=== PATIENT | male | born 1950 | race Caucasian/White ===

== ENCOUNTER 2017-04-13 15:10 | Emergency (ER) | payer BC ==
[2017-04-13 15:34] VITALS: PULSE 77
[2017-04-13] MEDS ORDERED: TORAdol 30 mg Injection IV ONE (15:38)
[2017-04-13] MEDS ORDERED: Sodium Chloride 0.9% 1000 ML 1,000 ML IV STA (15:38)
[2017-04-13] MEDS ORDERED: BENADRYL 50 MG/ML IV ONE (15:38)
--- NOTE | 2017-04-13 15:47 | ERPHSYRPT ---
- History of Present Illness Time Seen by Provider: 04/13/17 15:38 Source: patient Exam Limitations: no limitations Patient Subjective Stated Complaint: h/a for three weeks, nausea. saw psychiatric np at clinic and was given imitrex. states pain got worse. Triage Nursing Assessment: ambulated to room per self. skin w/d, color normal, resp easy. kurtis, a/o times three. no vomiting at this time. Physician History: This is a 66-year-old white male who states that he has had some a history of neck pain in the past she arrives with complaint of a left-sided headache associated with the nausea symptoms going on for 3 weeks. He states that he has not had any fevers he has not vomited he has not been otherwise ill he apparently saw by nurse practitioner and was given a prescription for Imitrex. Past medical history: Patient has had a pinched nerve in his neck in the past past surgical history includes surgery for a pinched nerve in his neck, cholecystectomy, surgery on her right thigh secondary to MRSA Social history patient denies alcohol or illicit drug use she does admit to tobacco use Timing/Duration: week(s) (3 weeks) Quality: aching Head Pain Location: temporal (left temporal) Severity of Pain-Max: moderate Severity of Pain-Current: mild Recent Head Trauma: no recent headache/trauma Associated Symptoms: nausea/vomiting, No confusion, No dizziness, No fatigue, No facial pain, No fever/chills, No flushing, No light-headedness, No loss of consciousness, No nasal congestion, No nasal drainage, No neck pain, No numbness in legs/feet, No rash, No sweating, No scotoma, No seizures, No sinus infection, No sensitive to light, No speech problems, No stiff neck, No trouble walking, No vision changes, No visual disturbance, No weakness Previous symptoms: other (patient has had the above noted symptoms for 3 weeks) Allergies/Adverse Reactions: No Known Drug Allergies Allergy (Unverified 04/13/17 15:27) Hx Tetanus, Diphtheria Vaccination/Date Given: No Hx Influenza Vaccination/Date Given: No Hx Pneumococcal Vaccination/Date Given: No - Review of Systems Constitutional: No Fever, No Chills Eyes: Photophobia, No Discharge, No Eye Pain, No Eye Redness, No Itchy, No Tearing, No Vision Changes, No Double Vision, No Foreign Body Sensation Ears, Nose, & Throat: No Symptoms, No Ear Pain, No Ear Discharge, No Hearing Changes, No Tinnitus, No Nose Pain, No Nose Congestion, No Nose Discharge, No Sinus Drainage, No Mouth Pain, No Mouth Swelling, No Loose Teeth, No Throat Pain , No Throat Swelling, No Hoarse, No Painful Swallowing, No Snoring, No Stridor Respiratory: No Cough, No Dyspnea Cardiac: No Chest Pain, No Edema, No Syncope Abdominal/Gastrointestinal: Nausea, No Abdominal Pain, No Vomiting, No Diarrhea Genitourinary Symptoms: No Dysuria Musculoskeletal: No Back Pain, No Neck Pain Skin: No Rash Neurological: Headache, No Dizziness, No Focal Weakness, No Gait Changes, No Irritability, No Lethargy, No Paralysis, No Parasthesia, No Seizure, No Sensory Changes, No Speech Changes, No Tics, No Tremors, No Vertigo Psychological: No Symptoms, No Alcohol Abuse, No Drug Abuse, No Anxiety, No Depression, No Suicidal Ideations, No Homicidal Ideations, No Emotional Lability , No Hallucinations, No Memory Loss Endocrine: No Symptoms All Other Systems: Reviewed and Negative - Past Medical History Pertinent Past Medical History: Yes GI Medical History: Gallbladder Disease - Past Surgical History Past Surgical History: Yes Gastrointestinal: Cholecystectomy Musculoskeletal: Orthopedic Surgery - Social History Smoking Status: Current every day smoker How long have you smoked: 49 Exposure to second hand smoke: No Drug Use: none Patient Lives Alone: No - Nursing Vital Signs Nursing Vital Signs: Initial Vital Signs Temperature 97.8 F 04/13/17 15:19 Pulse Rate 77 04/13/17 15:19 Respiratory Rate 16 04/13/17 15:19 Blood Pressure 145/76 04/13/17 15:19 O2 Sat by Pulse Oximetry 97 04/13/17 15:19 Pain Scale Pain Intensity 6 - Physical Exam General Appearance: no apparent distress Eye Exam: PERRL/EOMI Ears, Nose, Throat Exam: normal ENT inspection, moist mucous membranes Neck Exam: normal inspection, supple, full range of motion, No meningismus Respiratory Exam: normal breath sounds, lungs clear Cardiovascular Exam: regular rate/rhythm, normal heart sounds Gastrointestinal/Abdominal Exam: soft, No tenderness, No distention Back Exam: normal inspection, normal range of motion Extremity Exam: normal inspection, normal range of motion Mental Status Exam: alert, oriented x 3, cooperative, No agitated, No uncooperative, No depressed affect, No disoriented to person, No disoriented to place, No disoriented to time, No intoxicated appearance, No lethargy, No unresponsive vascular specialists Exam: normal hearing, normal speech, PERRL, No abnormal eye position, No abnormal gag reflex, No abnormal pupil position, No abnormal speech, No facial asymmetry, No facial droop, No facial weakness, No gaze palsy, No hearing deficit (R), No hearing deficit (L), No tongue deviation to R, No tongue deviation to L Coordination/Gait Exam: normal gait, normal cerebellar function, No abnormal gait, No ABN nose to finger (R), No ABN nose to finger (L) Motor/Sensory Exam: no motor deficit, no sensory deficit, no pronator drift, No weak motor strength RUE, No weak motor strength LUE, No weak motor strength RLE , No weak motor strength LLE DTR Exam: ankle (R): 2+, ankle (L): 2+ Skin Exam: normal color, warm, dry, No rash SpO2 Interpretation: normal (97%) SpO2: 97 Oxygen Delivery: Room Air - Course Nursing assessment & vital signs reviewed: Yes - CT Exams Head CT Interpretation: Discussed w/radiologist (head CT: No comparisons, normal CT of the head) Ordered Tests: Active Orders 24 hr Category Date Time Status IV Insertion STAT Care 04/13/17 15:38 Active HEAD WITHOUT CONTRAST [CT] Stat Exams 04/13/17 15:39 Taken BMP Stat Lab 04/13/17 16:00 Completed CBC W DIFF Stat Lab 04/13/17 16:00 Completed SED RATE [Erythrocyte Sedimentation Rate] Stat Lab 04/13/17 16:00 Completed Medication Summary Discontinued Medications Generic Name Dose Route Start Last Admin Trade Name Freq PRN Reason Stop Dose Admin Diphenhydramine HCl 25 mg 04/13/17 15:38 Benadryl 50 Mg/Ml IV 04/13/17 15:39 STAT ONE Sodium Chloride 1,000 mls @ 999 mls/hr 04/13/17 15:38 Sodium Chloride 0.9% 1000 Ml IV 04/13/17 16:38 .Q1H1M STA Ketorolac Tromethamine 30 mg 04/13/17 15:38 Toradol 30 Mg Injection IV 04/13/17 15:39 STAT ONE Lab/Rad Data: Laboratory Result Diagrams 04/13/17 16:00 04/13/17 16:00 Laboratory Results 04/13/17 04/13/17 04/13/17 Range/Units 16:00 16:00 16:00 WBC 9.4 (4.0-10.5) K/mm3 RBC 4.86 (4.1-5.6) M/mm3 Hgb 15.7 (12.5-18.0) gm/dl Hct 44.4 (42-50) % MCV 91.4 (78-100) fl MCH 32.3 H (26-32) pg MCHC 35.4 (32-36) g/dl RDW 13.3 (11.5-14.0) % Plt Count 226 (150-450) K/mm3 MPV 10.3 H (6-9.5) fl Gran % 66.0 (36.0-66.0) % Lymphocytes % 22.6 L (24.0-44.0) % Monocytes % 6.8 (0.0-12.0) % Eosinophils % 4.0 (0.00-5.0) % Basophils % 0.6 (0.0-0.4) % Basophils # 0.06 (0-0.4) ESR 3 (0-15) mm/hr Sodium 139 (136-145) mEq/L Potassium 4.1 (3.5-5.1) mEq/L Chloride 104 (98-107) mEq/L Carbon Dioxide 28.3 (21-32) mEq/L Anion Gap 10.6 (5-15) MEQ/L BUN 15 (9-20) mg/dL Creatinine 1.42 H (0.55-1.30) mg/dl Estimated GFR 53 ML/MIN Glucose 169 H (70-110) MG/DL Calcium 8.9 (8.5-10.1) mg/dL - Progress Progress: improved Air Movement: fair Progress Note: 04/13/17 17:[address] labs sedimentation rate all normal. Apparently patient has not gotten his Benadryl Toradol. Patient really does not want IV. Will discontinue IV fluids change Benadryl and Toradol to IM. - Departure Time of Disposition: 17:29 Departure Disposition: Home Clinical Impression: Headache Qualifiers: Headache type: unspecified Headache chronicity pattern: unspecified pattern Intractability: not intractable Qualified Code(s): R51 - Headache Condition: Fair Critical Care Time: No Instructions: Headache Additional Instructions: Return home. Rest in a dark quiet room. Phenergan 25 mg orally every 4-6 hours as needed for nausea vomiting or headache. Naprosyn 500 mg orally twice a day with food as needed for pain #20 . Follow- up with your family doctor. Return for acute distress or for severe symptoms. Prescriptions: Naproxen [Naprosyn] 500 mg PO BIDWMEALS #20 tablet Promethazine HCl 25 mg [Phenergan 25 mg] 25 mg PO Q4-6HPRN PRN #12 tablet PRN Reason: nausea vomiting or headache
[2017-04-13 16:32] LABS: BASOPHIL % 0.6 % (0.0-0.4); Lymphocytes % 22.6 % (24.0-44.0); Mean Cell Volume 91.4 fl (78-100); Mean Corpuscular Hemoglobin 32.3 pg (26-32); Mean Platelet Volume 10.3 fl (6-9.5); Monocytes % 6.8 % (0.0-12.0); Platelet Count 226 K/mm3 (150-450); Red Blood Count 4.86 M/mm3 (4.1-5.6); Red Cell Distribution Width 13.3 % (11.5-14.0); White Blood Count 9.4 K/mm3 (4.0-10.5)
[2017-04-13 16:45] LABS: ANION GAP 10.6 MEQ/L (5-15); Carbon Dioxide 28.3 mEq/L (21-32); Potassium 4.1 mEq/L (3.5-5.1)
[2017-04-13] MEDS ORDERED: TORAdol 30 mg Injection IM ONE (17:25)
[2017-04-13] MEDS ORDERED: BENADRYL 50 MG/ML IM ONE (17:26)
[2017-04-13] MEDS ORDERED: BENADRYL 50 MG/ML ONE (17:27)
[2017-04-13] MEDS ORDERED: TORAdol 30 mg Injection ONE (17:27)
[2017-04-13 17:49] VITALS: BP 145/81; O2SAT 98
--- NOTE | 2017-04-14 08:06 | XRAY ---
Indication: Headache for 3 weeks. No known injury. Multiple contiguous axial images obtained through the head without contrast. Comparison: None Normal appearing brain parenchyma, ventricles, and bony calvarium. Mild mucosal thickening of both ethmoid and lesser degree maxillary sinuses. Mastoid air cells are clear. Impression: No acute intracranial abnormalities. Incidental paranasal sinus disease. CTDI 68.81
== END 2017-04-13 17:52 | disposition home or self-care (01) ==
LOC: ED 15:10
DX: R51 Headache (principal)
CPT/HCPCS: 36415; 70450; 80048; 85025; 85652; 96372; 99284; J1200; J1885

== ENCOUNTER 2023-09-22 13:07 | Observation (INO) | payer MEDICARE ==
[2023-09-22] MEDS ORDERED: Zofran 4 MG/2 ML VIAL IV ONE (13:36)
[2023-09-22] MEDS ORDERED: MORPHINE SULFATE 4 MG INJ IV ONE (13:36)
[2023-09-22] MEDS ORDERED: Sodium Chloride 0.9% 1000 ML 1,000 ML IV STA (13:36)
[2023-09-22] MEDS ORDERED: MORPHINE SULFATE 4 MG INJ ONE (13:46)
[2023-09-22] MEDS ORDERED: Sodium Chloride 0.9% 1000 ML 1,000 ML ONE ×2 (13:46→17:07)
[2023-09-22] MEDS ORDERED: Zofran 4 MG/2 ML VIAL ONE (13:46)
--- NOTE | 2023-09-22 13:48 | ERPHSYRPT ---
- History of Present Illness Time Seen by Provider: 09/22/23 13:17 Historian: patient Exam Limitations: no limitations Patient Subjective Stated Complaint: C/O Right lower abdominal pain that started on , 09/20/23. States the pain is a constant, dull ache with intermittent sharp pains. Triage Nursing Assessment: Patient ambulated back to ER; states he started at the [facility]. He is alert and oriented. No SOB. Skin tone normal. BAXTER WNL. Right side of abdomen is tender to palpation. Physician History: 73-year-old male with history of tobacco abuse, hypertension, hyperlipidemia presented in the ER with chief complaint of right-sided abdominal pain for the last 2 to 3 days, moderate to severe sharp throbbing without any associated nausea or vomiting. Questionable element of constipation. No diarrhea. P atient reports no significant aggravating or relieving factors for pain. Reports having off-and-on constipation for the last month and a half without any weight loss. No fever chills cough or difficulty breathing reported. Allergies/Adverse Reactions: No Known Drug Allergies Allergy (Verified 09/22/23 13:16) Home Medications: Aspirin EC 81 mg [Ecotrin 81 mg] 1 tab PO DAILY 09/22/23 [History] Fluticasone Propionate 2 spray INTRANASAL HS 09/22/23 [History] Loratadine 10 mg [Claritin 10 mg] 1 tab PO DAILY 09/22/23 [History] Rosuvastatin Calcium 1 tab PO DAILY 09/22/23 [History] Hx Tetanus, Diphtheria Vaccination/Date Given: No Hx Influenza Vaccination/Date Given: Yes Hx Pneumococcal Vaccination/Date Given: No Immunizations Up to Date: Yes Travel Risk - International Travel Have you traveled outside of the country in past 3 weeks: No - Coronavirus Screening Are you exhibiting any of the following symptoms?: No Close contact with a COVID-19 positive Pt in past 14-21 Days: No - Vaccine Status Have you recieved a Covid-19 vaccination: Yes [employer] Worker: Unknown - Vaccination Dates Dates if Unknown: ? - Review of Systems Constitutional: No Symptoms Eyes: No Symptoms Ears, Nose, & Throat: No Symptoms Respiratory: No Symptoms Cardiac: No Symptoms Abdominal/Gastrointestinal: Abdominal Pain, Constipation Genitourinary Symptoms: No Symptoms Musculoskeletal: No Symptoms Endocrine: No Symptoms Hematologic/Lymphatic: No Symptoms Immunological/Allergic: No Symptoms - Past Medical History Pertinent Past Medical History: Yes Cardiac History: High Cholesterol GI Medical History: Gallbladder Disease Other Medical History: kidney stones, seasonal allergies - Past Surgical History Past Surgical History: Yes Gastrointestinal: Cholecystectomy Genitourinary: Other Musculoskeletal: Orthopedic Surgery Other Surgical History: Kindey stone removal - Social History Smoking Status: Current every day smoker How long have you smoked: 30+ years Exposure to second hand smoke: No Drug Use: none Patient Lives Alone: No - Nursing Vital Signs Nursing Vital Signs: Initial Vital Signs Temperature 98.5 F 09/22/23 13:17 Pulse Rate 77 09/22/23 13:17 Respiratory Rate 20 09/22/23 13:17 Blood Pressure 171/82 09/22/23 13:17 O2 Sat by Pulse Oximetry 95 09/22/23 13:17 Pain Scale Pain Intensity 9 - Physical Exam General Appearance: no apparent distress, alert Eye Exam: PERRL/EOMI Ears, Nose, Throat Exam: normal ENT inspection Neck Exam: normal inspection, supple, full range of motion Respiratory Exam: normal breath sounds, lungs clear Cardiovascular Exam: regular rate/rhythm, normal heart sounds Gastrointestinal/Abdomen Exam: soft, normal bowel sounds, tenderness, guarding (No right upper quadrant/lower quadrants, periumbilical area) Back Exam: normal inspection Extremity Exam: normal inspection, normal range of motion Neurologic Exam: alert, oriented x 3, cooperative SpO2 Interpretation: normal SpO2: 96 O2 Delivery: Room Air Ordered Tests: Active Orders 24 hr Category Date Time Status IV Insertion STAT Care 09/22/23 13:36 Active NPO (ED) STAT Care 09/22/23 13:36 Active ABDOMEN AND PELVIS W CONTRAST [CT] Stat Exams 09/22/23 13:36 Completed CBC W DIFF Stat Lab 09/22/23 13:36 Completed CMP Stat Lab 09/22/23 Completed LIPASE Stat Lab 09/22/23 Completed Lactic Acid Stat Lab 09/22/23 13:36 Completed UA W/RFX UR CULTURE Stat Lab 09/22/23 13:39 Completed Medication Summary Discontinued Medications Generic Name Dose Route Start Last Admin Trade Name Freq PRN Reason Stop Dose Admin Hydromorphone HCl 1 mg 09/22/23 16:18 09/22/23 16:35 Hydromorphone 1 Mg/1ml Inj IV 09/22/23 16:19 1 mg STAT ONE Administration Hydromorphone HCl Confirm 09/22/23 16:32 Hydromorphone 1 Mg/1ml Inj Administered 09/22/23 16:33 Dose 1 mg .ROUTE .STK-MED ONE Sodium Chloride 1,000 mls @ 999 mls/hr 09/22/23 13:36 09/22/23 14:54 Sodium Chloride 0.9% 1000 Ml IV 09/22/23 14:36 Infused .Q1H1M STA Infusion Sodium Chloride Confirm 09/22/23 13:46 Sodium Chloride 0.9% 1000 Ml Administered 09/22/23 13:47 Dose 1,000 mls @ ud .ROUTE .STK-MED ONE Piperacillin Sod/Tazobactam 100 mls @ 200 mls/hr 09/22/23 15:56 09/22/23 16:07 Sod 3.375 gm/ Sodium Chloride IV 09/22/23 16:25 200 mls/hr STAT ONE Administration Sodium Chloride Confirm 09/22/23 16:03 Sodium Chloride 100ml Mini-Bag Plus Administered 09/22/23 16:04 Dose 100 mls @ ud IV .STK-MED ONE Morphine Sulfate 4 mg 09/22/23 13:36 09/22/23 13:53 Morphine Sulfate 4 Mg/Ml Injection IV 09/22/23 13:37 4 mg STAT ONE Administration Morphine Sulfate Confirm 09/22/23 13:46 Morphine Sulfate 4 Mg/Ml Injection Administered 09/22/23 13:47 Dose 4 mg .ROUTE .STK-MED ONE Ondansetron HCl 4 mg 09/22/23 13:36 09/22/23 13:49 Ondansetron Hcl 4 Mg/2 Ml Vial IV 09/22/23 13:37 4 mg STAT ONE Administration Ondansetron HCl Confirm 09/22/23 13:46 Ondansetron Hcl 4 Mg/2 Ml Vial Administered 09/22/23 13:47 Dose 4 mg .ROUTE .STK-MED ONE Piperacillin Sod/Tazobactam Sod Confirm 09/22/23 16:02 Piperacillin/Tazobactam Sodium 3.375 Gm Vial Administered 09/22/23 16:03 Dose 3.375 gm IV .STK-MED ONE Lab/Rad Data: Laboratory Result Diagrams 09/22/23 13:36 09/22/23 Unknown Laboratory Results 09/22/23 09/22/23 09/22/23 Range/Units Unknown 13:39 13:36 WBC (4.0-10.5) x10^3/uL RBC (4.1-5.6) x10^6/uL Hgb (12.5-18.0) g/dL Hct (42-50) % MCV (78-100) fL MCH (26-32) pg MCHC (32-36) g/dL RDW (11.5-14.0) % Plt Count (150-450) x10^3/uL MPV (7.5-11.0) fL Gran % (36.0-66.0) % Immature Gran % (Auto) (0.00-0.4) % Nucleat RBC Rel Count (0.00-0.1) % Eos # (Auto) (0-0.5) x10^3/uL Immature Gran # (Auto) (0.00-0.03) x10^3u/L Absolute Lymphs (auto) (1.0-4.6) x10^3/uL Absolute Monos (auto) (0.0-1.3) x10^3/uL Absolute Nucleated RBC (0.00-0.01) x10^3u/L Lymphocytes % (24.0-44.0) % Monocytes % (0.0-12.0) % Eosinophils % (0.00-5.0) % Basophils % (0.0-0.4) % Absolute Granulocytes (1.4-6.9) x10^3/uL Basophils # (0-0.4) x10^3/uL Sodium 134 L (137-145) mmol/L Potassium 4.3 (3.5-5.1) mmol/L Chloride 100 (98-107) mmol/L Carbon Dioxide 25 (22-30) mmol/L Anion Gap 13.3 (5-15) MEQ/L BUN 21 H (9-20) mg/dL Creatinine 1.33 H (0.66-1.25) mg/dL Estimated GFR 57.2 ML/MIN Glucose 129 H (74-106) mg/dL Lactic Acid 1.8 (0.4-2.0) Calcium 9.7 (8.4-10.2) mg/dL Total Bilirubin 1.40 H (0.2-1.3) mg/dL AST 16 L (17-59) U/L ALT 17 (0-50) U/L Alkaline Phosphatase 89 (38-126) U/L Serum Total Protein 8.5 H (6.3-8.2) g/dL Albumin 4.7 (3.5-5.0) g/dL Lipase 39 (23-300) U/L Urine Color Dark Yellow (Yellow) Urine Appearance Clear (Clear) Urine pH 5.5 (4.6-8.0) Ur Specific [place] 1.025 (1.005-1.030) Urine Protein 30 (Negative) Urine Glucose (UA) Negative (Negative) mg/dL Urine Ketones Trace A (Negative) Urine Blood Negative (Negative) Urine Nitrite Negative (Negative) Urine Bilirubin Negative (Negative) Urine Urobilinogen 1.0 A (0.2) mg/dL Ur Leukocyte Esterase Trace A (Negative) U Hyaline Cast (Auto) 0-2 (0-2) /LPF Urine Microscopic RBC 0-2 (0-5) /HPF Urine Microscopic WBC 0-2 (0-5) /HPF Ur Epithelial Cells None Seen (None Seen) /HPF Urine Bacteria None Seen (None Seen) /HPF Urine Culture Reflexed NO (NO) 09/22/23 Range/Units 13:36 WBC 16.3 H (4.0-10.5) x10^3/uL RBC 5.05 (4.1-5.6) x10^6/uL Hgb 16.1 (12.5-18.0) g/dL Hct 46.5 (42-50) % MCV 92.1 (78-100) fL MCH 31.9 (26-32) pg MCHC 34.6 (32-36) g/dL RDW 13.1 (11.5-14.0) % Plt Count 260 (150-450) x10^3/uL MPV 9.9 (7.5-11.0) fL Gran % 76.2 H (36.0-66.0) % Immature Gran % (Auto) 0.6 H (0.00-0.4) % Nucleat RBC Rel Count 0.0 (0.00-0.1) % Eos # (Auto) 0.17 (0-0.5) x10^3/uL Immature Gran # (Auto) 0.10 H (0.00-0.03) x10^3u/L Absolute Lymphs (auto) 2.08 (1.0-4.6) x10^3/uL Absolute Monos (auto) 1.42 H (0.0-1.3) x10^3/uL Absolute Nucleated RBC 0.00 (0.00-0.01) x10^3u/L Lymphocytes % 12.7 L (24.0-44.0) % Monocytes % 8.7 (0.0-12.0) % Eosinophils % 1.0 (0.00-5.0) % Basophils % 0.8 (0.0-0.4) % Absolute Granulocytes 12.44 H (1.4-6.9) x10^3/uL Basophils # 0.13 (0-0.4) x10^3/uL Sodium (137-145) mmol/L Potassium (3.5-5.1) mmol/L Chloride (98-107) mmol/L Carbon Dioxide (22-30) mmol/L Anion Gap (5-15) MEQ/L BUN (9-20) mg/dL Creatinine (0.66-1.25) mg/dL Estimated GFR ML/MIN Glucose (74-106) mg/dL Lactic Acid (0.4-2.0) Calcium (8.4-10.2) mg/dL Total Bilirubin (0.2-1.3) mg/dL AST (17-59) U/L ALT (0-50) U/L Alkaline Phosphatase (38-126) U/L Serum Total Protein (6.3-8.2) g/dL Albumin (3.5-5.0) g/dL Lipase (23-300) U/L Urine Color (Yellow) Urine Appearance (Clear) Urine pH (4.6-8.0) Ur Specific [place] (1.005-1.030) Urine Protein (Negative) Urine Glucose (UA) (Negative) mg/dL Urine Ketones (Negative) Urine Blood (Negative) Urine Nitrite (Negative) Urine Bilirubin (Negative) Urine Urobilinogen (0.2) mg/dL Ur Leukocyte Esterase (Negative) U Hyaline Cast (Auto) (0-2) /LPF Urine Microscopic RBC (0-5) /HPF Urine Microscopic WBC (0-5) /HPF Ur Epithelial Cells (None Seen) /HPF Urine Bacteria (None Seen) /HPF Urine Culture Reflexed (NO) - Progress Progress: improved, pain not gone completely, re-examined Progress Note: 09/22/23 16:28 73-year-old is evaluated in the ER for right-sided abdominal pain for the last couple of days. Patient is given symptomatic treatment for pain, on reevaluation pain is not much improved and given another dose of stronger pain medication Dilaudid. Workup showed white count of 16, chemistries mild JORGE with a creatinine of 1.3 and mildly low bicarb of 21. Total bili of 1.4. Patient has no UTI. CT abdomen pelvis with contrast showed acute appendicitis without abscess or perforation. No other acute abdominal pelvic findings. Patient is given a dose of Zosyn. Discussed with Dr. Juan Manuel Gee, reviewed history, workup, recommended admission to hospitalist service in consultation with general surgery and would possibly be taken to the OR later today. 09/22/23 16:[address] Garza hospitalist on-call, reviewed history, workup and surgery recommendations and patient is accepted for admission Discussed with .: Ronen, Other (Dr. Garza hospitalist) Will see patient in: hospital (observation) Counseled pt/family regarding: lab results, diagnosis, rad results Medical Desision Making - Independent Historian Additional History obtained from: Spouse - Discussion of managment Care discussed with:: specialist (Dr. Juan Manuel Gee general surgeon, Dr. Garza hospitalist) Reviewed:: Test results Agreed on:: Treatment plan, place in obs Will see patient: in hospital - Risk of complications The pt has a mod risk of morbidity or mortality based on: Need for major surgery in otherwise healthy patient - Departure Departure Disposition: Observation Clinical Impression: Acute appendicitis Condition: Stable Critical Care Time: No Referrals: SCOTTY MURPHY NP [Primary Care Provider] - Follow up/PCP as directed
[2023-09-22 13:57] LABS: Absolute Neutrophil Ct (ANC) 12.44 x10^3/uL (1.4-6.9); BASOPHIL % 0.8 % (0.0-0.4); Basophil (Absolute #) 0.13 x10^3/uL (0-0.4); Eosinophil (Absolute #) 0.17 x10^3/uL (0-0.5); Hematocrit 46.5 % (42-50); Hemoglobin 16.1 g/dL (12.5-18.0); IMMATURE GRAN % 0.6 % (0.00-0.4); Lymphocyte (Absolute #) 2.08 x10^3/uL (1.0-4.6); Lymphocytes % 12.7 % (24.0-44.0); Mean Cell Volume 92.1 fL (78-100); Mean Corpuscular Hemoglobin 31.9 pg (26-32); Mean Corpuscular Hgb Concent. 34.6 g/dL (32-36); Mean Platelet Volume 9.9 fL (7.5-11.0); Monocyte (Absolute #) 1.42 x10^3/uL (0.0-1.3); Monocytes % 8.7 % (0.0-12.0); Neutrophil % 76.2 % (36.0-66.0); Platelet Count 260 x10^3/uL (150-450); Red Blood Count 5.05 x10^6/uL (4.1-5.6); Red Cell Distribution Width 13.1 % (11.5-14.0); White Blood Count 16.3 x10^3/uL (4.0-10.5)
[2023-09-22 14:10] LABS: ALBUMIN 4.7 g/dL (3.5-5.0); ANION GAP 13.3 MEQ/L (5-15); BILIRUBIN,TOTAL 1.4 mg/dL (0.2-1.3); Calcium 9.7 mg/dL (8.4-10.2); Creatinine 1 1.33 mg/dL (0.66-1.25); EST GLOMERULAR FILTRATION RATE 57.2 ML/MIN; Potassium 4.3 mmol/L (3.5-5.1); Total Protein 8.5 g/dL (6.3-8.2)
[2023-09-22 14:38] LABS: Appearance Clear (Clear); Bacteria None Seen /HPF (None Seen); Bilirubin Negative (Negative); Blood Negative (Negative); Epithelial Cells None Seen /HPF (None Seen); Glucose, Urine Negative (Negative); Ketones Trace (Negative); Leukocyte Esterase Trace (Negative); Nitrite Negative (Negative); Ph 5.5 (4.6-8.0); Protein,Urine Dip 30 (Negative); RBC 0-2 /HPF (0-5); Specific Gravity 1.025 (1.005-1.030); WBC 0-2 /HPF (0-5)
[2023-09-22 14:47] LABS: Hyaline Casts 0-2 /LPF (0-2)
[2023-09-22 14:48] LABS: ADD URINE CULTURE? NO (NO)
[2023-09-22] MEDS ORDERED: PIPERACILLIN/TAZOBACTAM 3.375 GM in Sodium Chloride 100ML MINI-BAG PLUS 100 ML IV ONE (15:56)
[2023-09-22] MEDS ORDERED: PIPERACILLIN/TAZOBACTAM IV ONE (16:02)
[2023-09-22] MEDS ORDERED: Sodium Chloride 100ML MINI-BAG PLUS 100 ML IV ONE (16:03)
--- NOTE | 2023-09-22 16:03 | XRAY ---
CLINICAL HISTORY:right side pain COMPARISON:None. TECHNIQUE:A CT scan of the abdomen and pelvis was performed with IV contrast. Coronal and sagittal reconstructive images were also obtained. 100 ml of Isovue 370 contrast was given IV. FINDINGS: The liver is mildly enlarged measuring about 17.3 cm in the craniocaudal axis. No focal or diffuse parenchymal abnormality. The portal vein, intrahepatic biliary radicals, and the bile ducts are normal. The gallbladder is surgically removed with surgical clips seen in the surgical bed. The spleen, pancreas, and adrenal glands are unremarkable. The kidneys are unremarkable. They are normal in size and shape. No cysts, calculi, or hydronephrosis. Multiple diverticulae are seen in the ascending colon, the transverse colon, and the descending colon with no inflammatory changes seen. The visualized small bowel loops are unremarkable. There is no evidence of significant enlargement of the mesenteric or retroperitoneal lymph nodes. Mild diffuse aortic and iliac intimal vascular atherosclerotic calcifications are seen. Pelvis: The appendix is seen thickened measuring a caliber of about 14 mm and is surrounded with fat stranding, suggesting acute appendicitis. The urinary bladder is unremarkable. The prostate size is average. Calcific foci noted within it. Small left-sided fat-containing inguinal hernia noted. The pelvic vasculature is unremarkable. No evidence of pelvic lymphadenopathy. Mild spine spondylodegenerative changes are seen. Visualized sections of the lower chest show no focal mass or consolidation. Mild posterior pleural thickening in lung bases showing subpleural ground-glass attenuation. IMPRESSION: 1. The appendix is thickened measuring 14 mm caliber, surrounded with fat stranding, suggesting acute appendicitis. Clinical assessment is recommended. 2. Diffuse uncomplicated colonic diverticulosis. [facility] ER was called at at 03:56 PM EST, 09/22/2023 and results were verbally communicated to Dr. Chavez. Electronically Signed by: Justice Hodgson MD. (09/22/2023 15:58:32 EST)
[2023-09-22] MEDS ORDERED: Hydromorphone 1 mg/ml Injection IV ONE (16:18)
[2023-09-22] MEDS ORDERED: Hydromorphone 1 mg/ml Injection ONE (16:32)
[2023-09-22] MEDS ORDERED: Sodium Chloride 0.9% 1000 ML 1,000 ML IV SCH (16:45)
--- NOTE | 2023-09-22 17:16 | PCM.HP ---
<GUSTAVO WADE - Last Filed: 09/22/23 17:41> History of Present Illness - Chief Complaint Chief Complaint: Acute appendicitis Date: 09/22/23 History of Present Illness: is a 73 year old male with a pmhx of HTN, TIA, HLD, and tobacco use who presented to ED 09/22/23 with complaints of right-sided abdominal pain for the past three days. Patient reports that he was in his usual state of health until this past Sunday when he started to experience a cramping/stabbing pain to his RUQ radiating to his umbilicus. Pain initially was intermittent but has increased in intensity and consistency the last two days. He rates his pain 8-9/10 on a numerical pain scale. No aggravating factors or associated symptoms such as nausea, vomiting, or fever. Pain somewhat reduced with pain medications. He does endorse a poor appetite with little food and drink for the past two days and constipation. Denies fever,cough, sob, cp, LEDEZMA, dizziness, N/V/D. In ED upon presentation, patient was hypertensive, afebrile, with spo2 at 95% on RA. CT of the abdomen and pelvis consistent with acute appendicitis, no abscess or perforation noted. Lab findings remarkable for WBC at 16.3, mild hyponatremia at 134, JORGE with BUN 21, creat 1.33, Tbili at 1.40, AST at 16, and total protein at 8.5. Patient given Zosyn, Dilaudid, and 1 liter fluid bolus. General surgery consult with plans for surgical intervention this evening. - Review of Systems Constitutional: No Symptoms Eyes: No Symptoms Ears, Nose, & Throat: No Symptoms Respiratory: No Symptoms Cardiac: No Symptoms Abdominal/Gastrointestinal: Abdominal Pain, Constipation, Appetite Changes (poor appetite) Genitourinary Symptoms: No Symptoms Musculoskeletal: No Symptoms Skin: No Symptoms Neurological: No Symptoms Psychological: No Symptoms Endocrine: No Symptoms Hematologic/Lymphatic: No Symptoms Immunological/Allergic: No Symptoms Medications & Allergies Home Medications: Home Medication List Amlodipine Besylate 5 mg [Norvasc 5 mg] 5 mg PO DAILY 09/22/23 [History Confirmed 09/22/23] Aspirin EC 81 mg [Ecotrin 81 mg] 81 mg PO DAILY 09/22/23 [History Confirmed 09/22/23] Fluticasone Propionate 2 spray INTRANASAL HS 09/22/23 [History Confirmed 09/22/23] Loratadine 10 mg [Claritin 10 mg] 10 mg PO DAILY 09/22/23 [History Confirmed 09/22/23] Rosuvastatin Calcium 10 mg PO DAILY 09/22/23 [History Confirmed 09/22/23] Allergies/Adverse Reactions: Allergies Allergy/AdvReac Type Severity Reaction Status Date / Time No Known Drug Allergies Allergy Verified 09/22/23 13:16 - Past Medical History Past Medical History: Yes Cardiac History: High Cholesterol GI Medical History: Gallbladder Disease Comment: kidney stones, seasonal allergies - Past Surgical History Past Surgical History: Yes GI Surgical History: Cholecystectomy Genitourinary Surgical Hx: Other Musculskeletal Surgical Hx: Orthopedic Surgery Other Surgical History: Kindey stone removal - Social History Smoking Status: Current every day smoker How long have you smoked: 30+ years Exposure to second hand smoke: No Alcohol: None Drug Use: none - Physical Exam Vital Signs: Vital Signs - 24 hr Temp Pulse Resp BP BP Pulse Ox 09/22/23 16:42 96 09/22/23 16:37 84 12 164/73 97 09/22/23 16:32 96 09/22/23 16:00 84 18 153/76 96 09/22/23 15:30 159/74 96 09/22/23 15:00 81 156/70 94 L 09/22/23 14:52 77 162/72 98 09/22/23 14:50 98 09/22/23 14:47 95 09/22/23 14:00 148/71 09/22/23 13:30 164/88 96 09/22/23 13:17 98.5 F 77 20 171/82 95 General Appearance: no apparent distress Neurologic Exam: alert, oriented x 3, cooperative Eye Exam: PERRL/EOMI Ears, Nose, Throat Exam: normal ENT inspection Neck Exam: normal inspection Respiratory Exam: normal breath sounds, lungs clear Cardiovascular Exam: regular rate/rhythm, normal heart sounds Gastrointestinal/Abdomen Exam: soft, normal bowel sounds, tenderness (TTP RUQ) Rectal Exam: deferred Back Exam: normal inspection Extremity Exam: normal inspection Skin Exam: normal color Results - Labs Lab/Micro Results: Lab Results-Last 24 Hours 09/22/23 09/22/23 09/22/23 Range/Units 13:36 13:36 13:39 WBC 16.3 H (4.0-10.5) x10^3/uL RBC 5.05 (4.1-5.6) x10^6/uL Hgb 16.1 (12.5-18.0) g/dL Hct 46.5 (42-50) % MCV 92.1 (78-100) fL MCH 31.9 (26-32) pg MCHC 34.6 (32-36) g/dL RDW 13.1 (11.5-14.0) % Plt Count 260 (150-450) x10^3/uL MPV 9.9 (7.5-11.0) fL Gran % 76.2 H (36.0-66.0) % Immature Gran % (Auto) 0.6 H (0.00-0.4) % Nucleat RBC Rel Count 0.0 (0.00-0.1) % Eos # (Auto) 0.17 (0-0.5) x10^3/uL Immature Gran # (Auto) 0.10 H (0.00-0.03) x10^3u/L Absolute Lymphs (auto) 2.08 (1.0-4.6) x10^3/uL Absolute Monos (auto) 1.42 H (0.0-1.3) x10^3/uL Absolute Nucleated RBC 0.00 (0.00-0.01) x10^3u/L Lymphocytes % 12.7 L (24.0-44.0) % Monocytes % 8.7 (0.0-12.0) % Eosinophils % 1.0 (0.00-5.0) % Basophils % 0.8 (0.0-0.4) % Absolute Granulocytes 12.44 H (1.4-6.9) x10^3/uL Basophils # 0.13 (0-0.4) x10^3/uL Sodium (137-145) mmol/L Potassium (3.5-5.1) mmol/L Chloride (98-107) mmol/L Carbon Dioxide (22-30) mmol/L Anion Gap (5-15) MEQ/L BUN (9-20) mg/dL Creatinine (0.66-1.25) mg/dL Estimated GFR ML/MIN Glucose (74-106) mg/dL Lactic Acid 1.8 (0.4-2.0) Calcium (8.4-10.2) mg/dL Total Bilirubin (0.2-1.3) mg/dL AST (17-59) U/L ALT (0-50) U/L Alkaline Phosphatase (38-126) U/L Serum Total Protein (6.3-8.2) g/dL Albumin (3.5-5.0) g/dL Lipase (23-300) U/L Urine Color Dark Yellow (Yellow) Urine Appearance Clear (Clear) Urine pH 5.5 (4.6-8.0) Ur Specific Harts 1.025 (1.005-1.030) Urine Protein 30 (Negative) Urine Glucose (UA) Negative (Negative) mg/dL Urine Ketones Trace A (Negative) Urine Blood Negative (Negative) Urine Nitrite Negative (Negative) Urine Bilirubin Negative (Negative) Urine Urobilinogen 1.0 A (0.2) mg/dL Ur Leukocyte Esterase Trace A (Negative) U Hyaline Cast (Auto) 0-2 (0-2) /LPF Urine Microscopic RBC 0-2 (0-5) /HPF Urine Microscopic WBC 0-2 (0-5) /HPF Ur Epithelial Cells None Seen (None Seen) /HPF Urine Bacteria None Seen (None Seen) /HPF Urine Culture Reflexed NO (NO) 09/22/23 Range/Units Unknown WBC (4.0-10.5) x10^3/uL RBC (4.1-5.6) x10^6/uL Hgb (12.5-18.0) g/dL Hct (42-50) % MCV (78-100) fL MCH (26-32) pg MCHC (32-36) g/dL RDW (11.5-14.0) % Plt Count (150-450) x10^3/uL MPV (7.5-11.0) fL Gran % (36.0-66.0) % Immature Gran % (Auto) (0.00-0.4) % Nucleat RBC Rel Count (0.00-0.1) % Eos # (Auto) (0-0.5) x10^3/uL Immature Gran # (Auto) (0.00-0.03) x10^3u/L Absolute Lymphs (auto) (1.0-4.6) x10^3/uL Absolute Monos (auto) (0.0-1.3) x10^3/uL Absolute Nucleated RBC (0.00-0.01) x10^3u/L Lymphocytes % (24.0-44.0) % Monocytes % (0.0-12.0) % Eosinophils % (0.00-5.0) % Basophils % (0.0-0.4) % Absolute Granulocytes (1.4-6.9) x10^3/uL Basophils # (0-0.4) x10^3/uL Sodium 134 L (137-145) mmol/L Potassium 4.3 (3.5-5.1) mmol/L Chloride 100 (98-107) mmol/L Carbon Dioxide 25 (22-30) mmol/L Anion Gap 13.3 (5-15) MEQ/L BUN 21 H (9-20) mg/dL Creatinine 1.33 H (0.66-1.25) mg/dL Estimated GFR 57.2 ML/MIN Glucose 129 H (74-106) mg/dL Lactic Acid (0.4-2.0) Calcium 9.7 (8.4-10.2) mg/dL Total Bilirubin 1.40 H (0.2-1.3) mg/dL AST 16 L (17-59) U/L ALT 17 (0-50) U/L Alkaline Phosphatase 89 (38-126) U/L Serum Total Protein 8.5 H (6.3-8.2) g/dL Albumin 4.7 (3.5-5.0) g/dL Lipase 39 (23-300) U/L Urine Color (Yellow) Urine Appearance (Clear) Urine pH (4.6-8.0) Ur Specific Harts (1.005-1.030) Urine Protein (Negative) Urine Glucose (UA) (Negative) mg/dL Urine Ketones (Negative) Urine Blood (Negative) Urine Nitrite (Negative) Urine Bilirubin (Negative) Urine Urobilinogen (0.2) mg/dL Ur Leukocyte Esterase (Negative) U Hyaline Cast (Auto) (0-2) /LPF Urine Microscopic RBC (0-5) /HPF Urine Microscopic WBC (0-5) /HPF Ur Epithelial Cells (None Seen) /HPF Urine Bacteria (None Seen) /HPF Urine Culture Reflexed (NO) - Radiology Impressions Radiology Exams & Impressions: Radiology Procedures Category Date Time Status ABDOMEN AND PELVIS W CONTRAST [CT] Stat Exams 09/22/23 13:36 Completed - Other Procedures and Tests Respiratory Therapy 09/22/23 16:57 EKG STAT Assessment/Plan (1) Acute appendicitis Current Visit: Yes Status: Acute Assessment & Plan: -Surgery consulted, plans for surgical intervention this evening -Zosyn given in ED, surgery to decide if abx to continue -Supportive care with pain control, anti-emetics Code(s): K35.80 - UNSPECIFIED ACUTE APPENDICITIS (2) JORGE (acute kidney injury) Current Visit: Yes Status: Acute Assessment & Plan: -Most likely secondary to hypovolemia -IVF -Monitor renal/lytes daily -Avoid SACHA/ARBS NSAIDS -Strict I&O -Monitor to fluid overload Code(s): N17.9 - ACUTE KIDNEY FAILURE, UNSPECIFIED (3) Leukocytosis Current Visit: Yes Status: Acute Assessment & Plan: -secondary to acute appendicitis, WBC at 16.3, trend, Zosyn given in ED, see acute appendicitis Code(s): D72.829 - ELEVATED WHITE BLOOD CELL COUNT, UNSPECIFIED (4) HTN (hypertension) Current Visit: Yes Status: Acute Assessment & Plan: -continue home medications once appropriate Code(s): I10 - ESSENTIAL (PRIMARY) HYPERTENSION (5) HLD (hyperlipidemia) Current Visit: Yes Status: Acute Assessment & Plan: -Continue home meds when appropriate VTE: SCDs PPI: Protonix Dispo: 1-2 days Code(s): E78.5 - HYPERLIPIDEMIA, UNSPECIFIED (6) Smoker Current Visit: Yes Status: Acute Assessment & Plan: -1ppd x 50 years -Advised cessation, patient states he has chantix his PCP prescribed -Nicotine patch Code(s): F17.200 - NICOTINE DEPENDENCE, UNSPECIFIED, UNCOMPLICATED <CARROLL VALDEZ - Last Filed: 09/22/23 22:06> History of Present Illness - Chief Complaint History of Present Illness: is a 73 year old male. - Physical Exam Vital Signs: Vital Signs - 24 hr Temp Pulse Resp BP BP Pulse Ox 09/22/23 18:44 98.3 F 86 16 142/65 95 09/22/23 17:40 98.3 F 86 16 142/65 95 09/22/23 16:42 96 09/22/23 16:37 84 12 164/73 97 09/22/23 16:32 96 09/22/23 16:00 84 18 153/76 96 09/22/23 15:30 159/74 96 09/22/23 15:00 81 156/70 94 L 09/22/23 14:52 77 162/72 98 09/22/23 14:50 98 09/22/23 14:47 95 09/22/23 14:00 148/71 09/22/23 13:30 164/88 96 09/22/23 13:17 98.5 F 77 20 171/82 95 Results - Labs Lab/Micro Results: Lab Results-Last 24 Hours 09/22/23 09/22/23 09/22/23 Range/Units 13:36 13:36 13:39 WBC 16.3 H (4.0-10.5) x10^3/uL RBC 5.05 (4.1-5.6) x10^6/uL Hgb 16.1 (12.5-18.0) g/dL Hct 46.5 (42-50) % MCV 92.1 (78-100) fL MCH 31.9 (26-32) pg MCHC 34.6 (32-36) g/dL RDW 13.1 (11.5-14.0) % Plt Count 260 (150-450) x10^3/uL MPV 9.9 (7.5-11.0) fL Gran % 76.2 H (36.0-66.0) % Immature Gran % (Auto) 0.6 H (0.00-0.4) % Nucleat RBC Rel Count 0.0 (0.00-0.1) % Eos # (Auto) 0.17 (0-0.5) x10^3/uL Immature Gran # (Auto) 0.10 H (0.00-0.03) x10^3u/L Absolute Lymphs (auto) 2.08 (1.0-4.6) x10^3/uL Absolute Monos (auto) 1.42 H (0.0-1.3) x10^3/uL Absolute Nucleated RBC 0.00 (0.00-0.01) x10^3u/L Lymphocytes % 12.7 L (24.0-44.0) % Monocytes % 8.7 (0.0-12.0) % Eosinophils % 1.0 (0.00-5.0) % Basophils % 0.8 (0.0-0.4) % Absolute Granulocytes 12.44 H (1.4-6.9) x10^3/uL Basophils # 0.13 (0-0.4) x10^3/uL Sodium (137-145) mmol/L Potassium (3.5-5.1) mmol/L Chloride (98-107) mmol/L Carbon Dioxide (22-30) mmol/L Anion Gap (5-15) MEQ/L BUN (9-20) mg/dL Creatinine (0.66-1.25) mg/dL Estimated GFR ML/MIN Glucose (74-106) mg/dL Lactic Acid 1.8 (0.4-2.0) Calcium (8.4-10.2) mg/dL Total Bilirubin (0.2-1.3) mg/dL AST (17-59) U/L ALT (0-50) U/L Alkaline Phosphatase (38-126) U/L Serum Total Protein (6.3-8.2) g/dL Albumin (3.5-5.0) g/dL Lipase (23-300) U/L Urine Color Dark Yellow (Yellow) Urine Appearance Clear (Clear) Urine pH 5.5 (4.6-8.0) Ur Specific Harts 1.025 (1.005-1.030) Urine Protein 30 (Negative) Urine Glucose (UA) Negative (Negative) mg/dL Urine Ketones Trace A (Negative) Urine Blood Negative (Negative) Urine Nitrite Negative (Negative) Urine Bilirubin Negative (Negative) Urine Urobilinogen 1.0 A (0.2) mg/dL Ur Leukocyte Esterase Trace A (Negative) U Hyaline Cast (Auto) 0-2 (0-2) /LPF Urine Microscopic RBC 0-2 (0-5) /HPF Urine Microscopic WBC 0-2 (0-5) /HPF Ur Epithelial Cells None Seen (None Seen) /HPF Urine Bacteria None Seen (None Seen) /HPF Urine Culture Reflexed NO (NO) 01/13/24 Range/Units Unknown WBC (4.0-10.5) x10^3/uL RBC (4.1-5.6) x10^6/uL Hgb (12.5-18.0) g/dL Hct (42-50) % MCV (78-100) fL MCH (26-32) pg MCHC (32-36) g/dL RDW (11.5-14.0) % Plt Count (150-450) x10^3/uL MPV (7.5-11.0) fL Gran % (36.0-66.0) % Immature Gran % (Auto) (0.00-0.4) % Nucleat RBC Rel Count (0.00-0.1) % Eos # (Auto) (0-0.5) x10^3/uL Immature Gran # (Auto) (0.00-0.03) x10^3u/L Absolute Lymphs (auto) (1.0-4.6) x10^3/uL Absolute Monos (auto) (0.0-1.3) x10^3/uL Absolute Nucleated RBC (0.00-0.01) x10^3u/L Lymphocytes % (24.0-44.0) % Monocytes % (0.0-12.0) % Eosinophils % (0.00-5.0) % Basophils % (0.0-0.4) % Absolute Granulocytes (1.4-6.9) x10^3/uL Basophils # (0-0.4) x10^3/uL Sodium 134 L (137-145) mmol/L Potassium 4.3 (3.5-5.1) mmol/L Chloride 100 (98-107) mmol/L Carbon Dioxide 25 (22-30) mmol/L Anion Gap 13.3 (5-15) MEQ/L BUN 21 H (9-20) mg/dL Creatinine 1.33 H (0.66-1.25) mg/dL Estimated GFR 57.2 ML/MIN Glucose 129 H (74-106) mg/dL Lactic Acid (0.4-2.0) Calcium 9.7 (8.4-10.2) mg/dL Total Bilirubin 1.40 H (0.2-1.3) mg/dL AST 16 L (17-59) U/L ALT 17 (0-50) U/L Alkaline Phosphatase 89 (38-126) U/L Serum Total Protein 8.5 H (6.3-8.2) g/dL Albumin 4.7 (3.5-5.0) g/dL Lipase 39 (23-300) U/L Urine Color (Yellow) Urine Appearance (Clear) Urine pH (4.6-8.0) Ur Specific Harts (1.005-1.030) Urine Protein (Negative) Urine Glucose (UA) (Negative) mg/dL Urine Ketones (Negative) Urine Blood (Negative) Urine Nitrite (Negative) Urine Bilirubin (Negative) Urine Urobilinogen (0.2) mg/dL Ur Leukocyte Esterase (Negative) U Hyaline Cast (Auto) (0-2) /LPF Urine Microscopic RBC (0-5) /HPF Urine Microscopic WBC (0-5) /HPF Ur Epithelial Cells (None Seen) /HPF Urine Bacteria (None Seen) /HPF Urine Culture Reflexed (NO) - Radiology Impressions Radiology Exams & Impressions: Radiology Procedures Category Date Time Status ABDOMEN AND PELVIS W CONTRAST [CT] Stat Exams 09/22/23 13:36 Completed STACIE Encounter - STACIE Encounter Attestation STACIE Encounter Attestation: "IhavepersonallyseenandexHÉCTOR Wylie andhavediscussed pertinent aspects of their care with Gustavo Basilio agree with the history, physical exam (any modifications based on my personal exam will be noted below), assessment, and plan as outlined in original note. Please see immediately below for my summary of findings and additional assessment and plan along with any meaningful corrections/explanations to the Subjective/Objective portions of the STACIE note will be noted." My portion of the encounter took place via telemedicine. -Acute appendicitis: patient seen post operatively, reported abdominal pain. Put on clear liquid diet by surgery. Will discuss with surgery if patient needs f urther antibiotics.
[2023-09-22] MEDS ORDERED: TYLENOL 325 MG PO PRN ×2 (17:20→20:46)
[2023-09-22] MEDS ORDERED: Zofran 4 MG/2 ML VIAL IV PRN (17:20)
[2023-09-22] MEDS ORDERED: Hydromorphone 1 mg/ml Injection IV PRN (17:22)
[2023-09-22] MEDS ORDERED: NORCO 5/325 MG PO PRN (17:22)
[2023-09-22] MEDS ORDERED: Lactated Ringers 1,000 ML IV ONE (18:30)
[2023-09-22] MEDS ORDERED: Lactated Ringers 1,000 ML IV SCH (18:30)
[2023-09-22] MEDS: Nicoderm CQ 21 MG TOP SCH (18:52)
[2023-09-22] MEDS ORDERED: MEFOXIN 2 GM PREMIX** 2 GM/50 ML ML IV SCH (19:00)
[2023-09-22] MEDS ORDERED: Sensorcaine 0.25% 10 ML ONE ×2 (19:06→20:06)
[2023-09-22] MEDS ORDERED: Versed 2 MG/2 ML Injection ONE (19:23)
[2023-09-22] MEDS ORDERED: Quelicin Fliptop 200 MG/10 ML ONE (19:23)
[2023-09-22] MEDS ORDERED: SUBLIMAZE 100 MCG/2 ML ONE ×2 (19:23→20:25)
[2023-09-22] MEDS ORDERED: Amidate 20 MG/10 ML IV ONE (19:23)
[2023-09-22] MEDS ORDERED: Zemuron 100 MG/10 ML ONE (19:23)
--- NOTE | 2023-09-22 19:28 | PCM.CONS ---
History of Present Illness - Reason for Consult Chief Complaint: Acute appendicitis Requesting Provider: CARROLL VALDEZ MD Consulting Provider: SADAF HARRIS MD History of Present Illness: is a 73 year old male. hx per chart review and d/w pt 73yo male rlq abd pain started a 09/20. constant dull ache intermittently sharp. to ED workup with ct scan confirmed acute appnedicitis " - History of Present Illness Time Seen by Provider: 09/22/23 13:17 Historian: patient Exam Limitations: no limitations Patient Subjective Stated Complaint: C/O Right lower abdominal pain that started on , 09/20/23. States the pain is a constant, dull ache with intermittent sharp pains. Triage Nursing Assessment: Patient ambulated back to ER; states he started at the [facility]. He is alert and oriented. No SOB. Skin tone normal. BAXTER WNL. Right side of abdomen is tender to palpation. Physician History: 73-year-old male with history of tobacco abuse, hypertension, hyperlipidemia presented in the ER with chief complaint of right-sided abdominal pain for the last 2 to 3 days, moderate to severe sharp throbbing without any associated nausea or vomiting. Questionable element of constipation. No diarrhea. Patient reports no significant aggravating or relieving factors for pain. Reports having off-and-on constipation for the last month and a half without any weight loss. No fever chills cough or difficulty breathing reported. Allergies/Adverse Reactions: No Known Drug Allergies Allergy (Verified 09/22/23 13:16) Home Medications: Aspirin EC 81 mg [Ecotrin 81 mg] 1 tab PO DAILY 09/22/23 [History] Fluticasone Propionate 2 spray INTRANASAL HS 09/22/23 [History] Loratadine 10 mg [Claritin 10 mg] 1 tab PO DAILY 09/22/23 [History] Rosuvastatin Calcium 1 tab PO DAILY 09/22/23 [History] Hx Tetanus, Diphtheria Vaccination/Date Given: No Hx Influenza Vaccination/Date Given: Yes Hx Pneumococcal Vaccination/Date Given: No Immunizations Up to Date: Yes Travel Risk - International Travel Have you traveled outside of the country in past 3 weeks: No - Coronavirus Screening Are you exhibiting any of the following symptoms?: No Close contact with a COVID-19 positive Pt in past 14-21 Days: No - Vaccine Status Have you recieved a Covid-19 vaccination: Yes Weeder Thinner: Unknown - Vaccination Dates Dates if Unknown: ? - Review of Systems Constitutional: No Symptoms Eyes: No Symptoms Ears, Nose, & Throat: No Symptoms Respiratory: No Symptoms Cardiac: No Symptoms Abdominal/Gastrointestinal: Abdominal Pain, Constipation Genitourinary Symptoms: No Symptoms Musculoskeletal: No Symptoms Endocrine: No Symptoms Hematologic/Lymphatic: No Symptoms Immunological/Allergic: No Symptoms - Past Medical History Pertinent Past Medical History: Yes Cardiac History: High Cholesterol GI Medical History: Gallbladder Disease Other Medical History: kidney stones, seasonal allergies - Past Surgical History Past Surgical History: Yes Gastrointestinal: Cholecystectomy Genitourinary: Other Musculoskeletal: Orthopedic Surgery Other Surgical History: Kindey stone removal - Social History Smoking Status: Current every day smoker How long have you smoked: 30+ years Exposure to second hand smoke: No Drug Use: none Patient Lives Alone: No" Medications & Allergies Home Medications: Home Medication List Amlodipine Besylate 5 mg [Norvasc 5 mg] 5 mg PO DAILY 09/22/23 [History Confirmed 09/22/23] Aspirin EC 81 mg [Ecotrin 81 mg] 81 mg PO DAILY 09/22/23 [History Confirmed 09/22/23] Fluticasone Propionate 2 spray INTRANASAL HS 09/22/23 [History Confirmed 09/22/23] Loratadine 10 mg [Claritin 10 mg] 10 mg PO DAILY 09/22/23 [History Confirmed 09/22/23] Rosuvastatin Calcium 10 mg PO DAILY 09/22/23 [History Confirmed 09/22/23] Allergies/Adverse Reactions: Allergies Allergy/AdvReac Type Severity Reaction Status Date / Time No Known Drug Allergies Allergy Verified 09/22/23 13:16 - Past Medical History Past Medical History: Yes Neurological History: TIA ENT History: Other Cardiac History: High Cholesterol Respiratory History: No Pertinent History Endocrine Medical History: No Pertinent History Musculoskelatal History: No Pertinent History GI Medical History: Gallbladder Disease History: Other Pyscho-Social History: No Pertinent History Male Reproductive Disorders: No Pertinent History Comment: kidney stones, seasonal allergies - Past Surgical History Past Surgical History: Yes Neuro Surgical History: No Pertinent History Cardiac History: No Pertinent History Respiratory Surgery: No Pertinent History GI Surgical History: Cholecystectomy Genitourinary Surgical Hx: Other Musculskeletal Surgical Hx: Orthopedic Surgery Male Surgical History: No Pertinent History Other Surgical History: Kindey stone removal - Social History Smoking Status: Current every day smoker How long have you smoked: 30+ years Exposure to second hand smoke: No Alcohol: None Drug Use: none - Physical Exam Vital Signs: Vital Signs - 24 hr Temp Pulse Resp BP BP Pulse Ox 09/22/23 18:44 98.3 F 86 16 142/65 95 09/22/23 17:40 98.3 F 86 16 142/65 95 09/22/23 16:42 96 09/22/23 16:37 84 12 164/73 97 09/22/23 16:32 96 09/22/23 16:00 84 18 153/76 96 09/22/23 15:30 159/74 96 09/22/23 15:00 81 156/70 94 L 09/22/23 14:52 77 162/72 98 09/22/23 14:50 98 09/22/23 14:47 95 09/22/23 14:00 148/71 09/22/23 13:30 164/88 96 09/22/23 13:17 98.5 F 77 20 171/82 95 Additional Findings: 09/22/23 19:26 nad nonlabored resps rrr nd, soft, ttp rlq localized guarding mild edema Results - Labs Lab/Micro Results: Lab Results-Last 24 Hours 09/22/23 09/22/23 09/22/23 Range/Units 13:36 13:36 13:39 WBC 16.3 H (4.0-10.5) x10^3/uL RBC 5.05 (4.1-5.6) x10^6/uL Hgb 16.1 (12.5-18.0) g/dL Hct 46.5 (42-50) % MCV 92.1 (78-100) fL MCH 31.9 (26-32) pg MCHC 34.6 (32-36) g/dL RDW 13.1 (11.5-14.0) % Plt Count 260 (150-450) x10^3/uL MPV 9.9 (7.5-11.0) fL Gran % 76.2 H (36.0-66.0) % Immature Gran % (Auto) 0.6 H (0.00-0.4) % Nucleat RBC Rel Count 0.0 (0.00-0.1) % Eos # (Auto) 0.17 (0-0.5) x10^3/uL Immature Gran # (Auto) 0.10 H (0.00-0.03) x10^3u/L Absolute Lymphs (auto) 2.08 (1.0-4.6) x10^3/uL Absolute Monos (auto) 1.42 H (0.0-1.3) x10^3/uL Absolute Nucleated RBC 0.00 (0.00-0.01) x10^3u/L Lymphocytes % 12.7 L (24.0-44.0) % Monocytes % 8.7 (0.0-12.0) % Eosinophils % 1.0 (0.00-5.0) % Basophils % 0.8 (0.0-0.4) % Absolute Granulocytes 12.44 H (1.4-6.9) x10^3/uL Basophils # 0.13 (0-0.4) x10^3/uL Sodium (137-145) mmol/L Potassium (3.5-5.1) mmol/L Chloride (98-107) mmol/L Carbon Dioxide (22-30) mmol/L Anion Gap (5-15) MEQ/L BUN (9-20) mg/dL Creatinine (0.66-1.25) mg/dL Estimated GFR ML/MIN Glucose (74-106) mg/dL Lactic Acid 1.8 (0.4-2.0) Calcium (8.4-10.2) mg/dL Total Bilirubin (0.2-1.3) mg/dL AST (17-59) U/L ALT (0-50) U/L Alkaline Phosphatase (38-126) U/L Serum Total Protein (6.3-8.2) g/dL Albumin (3.5-5.0) g/dL Lipase (23-300) U/L Urine Color Dark Yellow (Yellow) Urine Appearance Clear (Clear) Urine pH 5.5 (4.6-8.0) Ur Specific [place] 1.025 (1.005-1.030) Urine Protein 30 (Negative) Urine Glucose (UA) Negative (Negative) mg/dL Urine Ketones Trace A (Negative) Urine Blood Negative (Negative) Urine Nitrite Negative (Negative) Urine Bilirubin Negative (Negative) Urine Urobilinogen 1.0 A (0.2) mg/dL Ur Leukocyte Esterase Trace A (Negative) U Hyaline Cast (Auto) 0-2 (0-2) /LPF Urine Microscopic RBC 0-2 (0-5) /HPF Urine Microscopic WBC 0-2 (0-5) /HPF Ur Epithelial Cells None Seen (None Seen) /HPF Urine Bacteria None Seen (None Seen) /HPF Urine Culture Reflexed NO (NO) 09/22/23 Range/Units Unknown WBC (4.0-10.5) x10^3/uL RBC (4.1-5.6) x10^6/uL Hgb (12.5-18.0) g/dL Hct (42-50) % MCV (78-100) fL MCH (26-32) pg MCHC (32-36) g/dL RDW (11.5-14.0) % Plt Count (150-450) x10^3/uL MPV (7.5-11.0) fL Gran % (36.0-66.0) % Immature Gran % (Auto) (0.00-0.4) % Nucleat RBC Rel Count (0.00-0.1) % Eos # (Auto) (0-0.5) x10^3/uL Immature Gran # (Auto) (0.00-0.03) x10^3u/L Absolute Lymphs (auto) (1.0-4.6) x10^3/uL Absolute Monos (auto) (0.0-1.3) x10^3/uL Absolute Nucleated RBC (0.00-0.01) x10^3u/L Lymphocytes % (24.0-44.0) % Monocytes % (0.0-12.0) % Eosinophils % (0.00-5.0) % Basophils % (0.0-0.4) % Absolute Granulocytes (1.4-6.9) x10^3/uL Basophils # (0-0.4) x10^3/uL Sodium 134 L (137-145) mmol/L Potassium 4.3 (3.5-5.1) mmol/L Chloride 100 (98-107) mmol/L Carbon Dioxide 25 (22-30) mmol/L Anion Gap 13.3 (5-15) MEQ/L BUN 21 H (9-20) mg/dL Creatinine 1.33 H (0.66-1.25) mg/dL Estimated GFR 57.2 ML/MIN Glucose 129 H (74-106) mg/dL Lactic Acid (0.4-2.0) Calcium 9.7 (8.4-10.2) mg/dL Total Bilirubin 1.40 H (0.2-1.3) mg/dL AST 16 L (17-59) U/L ALT 17 (0-50) U/L Alkaline Phosphatase 89 (38-126) U/L Serum Total Protein 8.5 H (6.3-8.2) g/dL Albumin 4.7 (3.5-5.0) g/dL Lipase 39 (23-300) U/L Urine Color (Yellow) Urine Appearance (Clear) Urine pH (4.6-8.0) Ur Specific [place] (1.005-1.030) Urine Protein (Negative) Urine Glucose (UA) (Negative) mg/dL Urine Ketones (Negative) Urine Blood (Negative) Urine Nitrite (Negative) Urine Bilirubin (Negative) Urine Urobilinogen (0.2) mg/dL Ur Leukocyte Esterase (Negative) U Hyaline Cast (Auto) (0-2) /LPF Urine Microscopic RBC (0-5) /HPF Urine Microscopic WBC (0-5) /HPF Ur Epithelial Cells (None Seen) /HPF Urine Bacteria (None Seen) /HPF Urine Culture Reflexed (NO) - Radiology Impressions Radiology Exams & Impressions: Radiology Procedures Category Date Time Status ABDOMEN AND PELVIS W CONTRAST [CT] Stat Exams 09/22/23 13:36 Completed Assessment/Plan (1) Acute appendicitis Current Visit: Yes Status: Acute Assessment & Plan: [address] confrimed acute appendictis. -lap appy possible open gen. Code(s): K35.80 - UNSPECIFIED ACUTE APPENDICITIS
[2023-09-22] MEDS ORDERED: ALBUTEROL/Proair Hfa MDI IH ONE (19:50)
[2023-09-22] MEDS ORDERED: PHENYLEPHRINE HCL ONE (19:58)
[2023-09-22] MEDS ORDERED: BRIDION 200MG/2ML IV ONE (20:17)
[2023-09-22] MEDS: Zofran 4 MG/2 ML VIAL IV PRN (21:35)
[2023-09-22] MEDS: MORPHINE SULFATE 4 MG INJ IV PRN ×2 (21:35→23:59)
[2023-09-22] MEDS: D5W/0.45NS W/ 20mEq KCl 1000 ML 1,000 ML IV SCH (21:53)
[2023-09-22] MEDS: Flonase NASAL NS SCH (23:57)
[2023-09-23] MEDS: MORPHINE SULFATE 4 MG INJ IV PRN ×2 (04:12→08:04)
[2023-09-23 05:51] LABS: Eosinophil % 4.3 % (0.00-5.0); Eosinophil (Absolute #) 0.44 x10^3/uL (0-0.5); Hematocrit 38.4 % (42-50); Hemoglobin 12.9 g/dL (12.5-18.0); IMMATURE GRAN # 0.02 x10^3u/L (0.00-0.03); IMMATURE GRAN % 0.2 % (0.00-0.4); Lymphocyte (Absolute #) 1.92 x10^3/uL (1.0-4.6); Lymphocytes % 18.6 % (24.0-44.0); Mean Cell Volume 94.1 fL (78-100); Mean Corpuscular Hemoglobin 31.6 pg (26-32); Mean Corpuscular Hgb Concent. 33.6 g/dL (32-36); Mean Platelet Volume 9.3 fL (7.5-11.0); Monocyte (Absolute #) 1.05 x10^3/uL (0.0-1.3); Monocytes % 10.2 % (0.0-12.0); Neutrophil % 65.7 % (36.0-66.0); Platelet Count 210 x10^3/uL (150-450); Red Blood Count 4.08 x10^6/uL (4.1-5.6); White Blood Count 10.3 x10^3/uL (4.0-10.5)
[2023-09-23 06:10] LABS: ALBUMIN 3.5 g/dL (3.5-5.0); ANION GAP 6.4 MEQ/L (5-15); BILIRUBIN,TOTAL 0.7 mg/dL (0.2-1.3); Calcium 8.4 mg/dL (8.4-10.2); Creatinine 1 1.24 mg/dL (0.66-1.25); EST GLOMERULAR FILTRATION RATE 62.2 ML/MIN; Potassium 4.1 mmol/L (3.5-5.1); Total Protein 6.5 g/dL (6.3-8.2)
[2023-09-23] MEDS ORDERED: NON-FORMULARY ITEM (Rosuvastatin Calcium [Rosuvastatin Calcium] 10 MG Tablet) PO SCH (10:00)
[2023-09-23] MEDS: CLARITIN 10 MG PO SCH (10:38)
[2023-09-23] MEDS: ECOTRIN 81 MG PO SCH (10:38)
[2023-09-23] MEDS: ENOXAPARIN SODIUM SQ SCH (10:39)
[2023-09-23] MEDS: NORVASC 5 MG PO SCH (10:39)
[2023-09-23] MEDS: NORCO 5/325 MG PO PRN ×3 (11:35→21:12)
--- NOTE | 2023-09-23 13:07 | PCM.NOTE ---
Date and Time: 09/23/23 1301 Subjective Assessment: is a 73 year old male with a pmhx of HTN, TIA, HLD, and tobacco use who presented to ED 09/22/23 with complaints of right-sided abdominal pain for the past three days. Patient reports that he was in his usual state of health until this past Sunday when he started to experience a cramping/stabbing pain to his RUQ radiating to his umbilicus. Pain initially was intermittent but has increased in intensity and consistency the last two days. He rates his pain 8- 9/10 on a numerical pain scale. No aggravating factors or associated symptoms such as nausea, vomiting, or fever. Pain somewhat reduced with pain medications. He does endorse a poor appetite with little food and drink for the past two days and constipation. Denies fever,cough, sob, cp, LEDEZMA, dizziness, N/V/D. In ED upon presentation, patient was hypertensive, afebrile, with spo2 at 95% on RA. CT of the abdomen and pelvis consistent with acute appendicitis, no abscess or perforation noted. Lab findings remarkable for WBC at 16.3, mild hyponatremia at 134, JORGE with BUN 21, creat 1.33, Tbili at 1.40, AST at 16, and total protein at 8.5. Patient given Zosyn, Dilaudid, and 1 liter fluid bolus. General surgery consulted. Lap appy performed with no complications. 09/23: Met with patient bedside. Endorses 9/10 left abdominal pain at incision site. Three puncture sites with gauze/tegederm CDI. No erythema/streaking. Discussed labwork, no signs of infection. Unable to tolerate a diet this morning. Pain medications ordered. Plan for pain control today. Advised ambulation. Surgery to evaluate on rounds. Most likely will discharge tomorrow when pain is controlled. Denies fever,cough, sob, cp, LEDEZMA, dizziness, N/V/D. <GUSTAVO WADE - Last Filed: 09/23/23 13:01> Date and Time: 09/23/232023 <CARROLL VALDEZ - Last Filed: 09/23/23 20:25> - Review of Systems Constitutional: No Symptoms Eyes: No Symptoms Ears, Nose, & Throat: No Symptoms Respiratory: No Symptoms Cardiac: No Symptoms Abdominal/Gastrointestinal: Abdominal Pain, Appetite Changes (poor appetite) Genitourinary Symptoms: No Symptoms Musculoskeletal: No Symptoms Skin: Other (3 puncture sites CDI) Neurological: No Symptoms Psychological: No Symptoms Endocrine: No Symptoms Hematologic/Lymphatic: No Symptoms <GUSTAVO WADE - Last Filed: 09/23/23 13:01> Objective Exam General Appearance: no apparent distress Neurologic Exam: alert, oriented x 3, cooperative Skin Exam: normal color Eye Exam: PERRL Ears, Nose, Throat Exam: normal ENT inspection Neck Exam: normal inspection Respiratory Exam: normal breath sounds, lungs clear Cardiovascular Exam: regular rate/rhythm, normal heart sounds Gastrointestinal/Abdomen Exam: soft, normal bowel sounds, other (3 puncture sites CDI) Extremity Exam: normal inspection Back Exam: normal inspection Male Genitalia Exam: deferred Rectal Exam: deferred <GUSTAVO WADE - Last Filed: 09/23/23 13:01> OBJECTIVE DATA Vital Signs: Vital Signs - 24 hr Temp Pulse Resp BP BP Pulse Ox 09/23/23 08:00 97.8 F 78 18 127/62 95 09/23/23 04:00 98.4 F 80 16 108/63 99 09/23/23 00:00 98.4 F 81 20 121/63 99 09/22/23 23:00 99.1 F 73 16 97/55 97 09/22/23 22:30 99 F 74 16 103/57 97 09/22/23 22:00 83 20 109/56 96 09/22/23 21:45 99.0 F 82 18 110/53 96 09/22/23 21:30 86 18 103/61 94 L 09/22/23 21:15 99.3 F 88 18 117/57 88 L 09/22/23 18:44 98.3 F 86 16 142/65 95 09/22/23 17:40 98.3 F 86 16 142/65 95 09/22/23 16:42 96 09/22/23 16:37 84 12 164/73 97 09/22/23 16:32 96 09/22/23 16:00 84 18 153/76 96 09/22/23 15:30 159/74 96 09/22/23 15:00 81 156/70 94 L 09/22/23 14:52 77 162/72 98 09/22/23 14:50 98 09/22/23 14:47 95 09/22/23 14:00 148/71 09/22/23 13:30 164/88 96 09/22/23 13:17 98.5 F 77 20 171/82 95 Pain Assessment - Last Documented Pain Intensity 1 Pain Scale Used 0-10 Pain Scale Intake and Output: Intake & Output 09/21/23 09/22/23 09/23/23 09/24/23 11:59 11:59 11:59 11:59 Intake Total 901 Output Total 500 Balance 401 Weight 78.6 kg Lab Results: Lab Results-Last 24 Hours 09/22/23 09/22/23 09/22/23 Range/Units 13:36 13:36 13:39 WBC 16.3 H (4.0-10.5) x10^3/uL RBC 5.05 (4.1-5.6) x10^6/uL Hgb 16.1 (12.5-18.0) g/dL Hct 46.5 (42-50) % MCV 92.1 (78-100) fL MCH 31.9 (26-32) pg MCHC 34.6 (32-36) g/dL RDW 13.1 (11.5-14.0) % Plt Count 260 (150-450) x10^3/uL MPV 9.9 (7.5-11.0) fL Gran % 76.2 H (36.0-66.0) % Immature Gran % (Auto) 0.6 H (0.00-0.4) % Nucleat RBC Rel Count 0.0 (0.00-0.1) % Eos # (Auto) 0.17 (0-0.5) x10^3/uL Immature Gran # (Auto) 0.10 H (0.00-0.03) x10^3u/L Absolute Lymphs (auto) 2.08 (1.0-4.6) x10^3/uL Absolute Monos (auto) 1.42 H (0.0-1.3) x10^3/uL Absolute Nucleated RBC 0.00 (0.00-0.01) x10^3u/L Lymphocytes % 12.7 L (24.0-44.0) % Monocytes % 8.7 (0.0-12.0) % Eosinophils % 1.0 (0.00-5.0) % Basophils % 0.8 (0.0-0.4) % Absolute Granulocytes 12.44 H (1.4-6.9) x10^3/uL Basophils # 0.13 (0-0.4) x10^3/uL Sodium (137-145) mmol/L Potassium (3.5-5.1) mmol/L Chloride (98-107) mmol/L Carbon Dioxide (22-30) mmol/L Anion Gap (5-15) MEQ/L BUN (9-20) mg/dL Creatinine (0.66-1.25) mg/dL Estimated GFR ML/MIN Glucose (74-106) mg/dL Lactic Acid 1.8 (0.4-2.0) Calcium (8.4-10.2) mg/dL Total Bilirubin (0.2-1.3) mg/dL AST (17-59) U/L ALT (0-50) U/L Alkaline Phosphatase (38-126) U/L Serum Total Protein (6.3-8.2) g/dL Albumin (3.5-5.0) g/dL Lipase (23-300) U/L Urine Color Dark Yellow (Yellow) Urine Appearance Clear (Clear) Urine pH 5.5 (4.6-8.0) Ur Specific [place] 1.025 (1.005-1.030) Urine Protein 30 (Negative) Urine Glucose (UA) Negative (Negative) mg/dL Urine Ketones Trace A (Negative) Urine Blood Negative (Negative) Urine Nitrite Negative (Negative) Urine Bilirubin Negative (Negative) Urine Urobilinogen 1.0 A (0.2) mg/dL Ur Leukocyte Esterase Trace A (Negative) U Hyaline Cast (Auto) 0-2 (0-2) /LPF Urine Microscopic RBC 0-2 (0-5) /HPF Urine Microscopic WBC 0-2 (0-5) /HPF Ur Epithelial Cells None Seen (None Seen) /HPF Urine Bacteria None Seen (None Seen) /HPF Urine Culture Reflexed NO (NO) 09/22/23 09/23/23 09/23/23 Range/Units Unknown 05:50 05:50 WBC 10.3 (4.0-10.5) x10^3/uL RBC 4.08 L (4.1-5.6) x10^6/uL Hgb 12.9 (12.5-18.0) g/dL Hct 38.4 L (42-50) % MCV 94.1 (78-100) fL MCH 31.6 (26-32) pg MCHC 33.6 (32-36) g/dL RDW 13.0 (11.5-14.0) % Plt Count 210 (150-450) x10^3/uL MPV 9.3 (7.5-11.0) fL Gran % 65.7 (36.0-66.0) % Immature Gran % (Auto) 0.2 (0.00-0.4) % Nucleat RBC Rel Count 0.0 (0.00-0.1) % Eos # (Auto) 0.44 (0-0.5) x10^3/uL Immature Gran # (Auto) 0.02 (0.00-0.03) x10^3u/L Absolute Lymphs (auto) 1.92 (1.0-4.6) x10^3/uL Absolute Monos (auto) 1.05 (0.0-1.3) x10^3/uL Absolute Nucleated RBC 0.00 (0.00-0.01) x10^3u/L Lymphocytes % 18.6 L (24.0-44.0) % Monocytes % 10.2 (0.0-12.0) % Eosinophils % 4.3 (0.00-5.0) % Basophils % 1.0 (0.0-0.4) % Absolute Granulocytes 6.80 (1.4-6.9) x10^3/uL Basophils # 0.10 (0-0.4) x10^3/uL Sodium 134 L 135 L (137-145) mmol/L Potassium 4.3 4.1 (3.5-5.1) mmol/L Chloride 100 105 (98-107) mmol/L Carbon Dioxide 25 28 (22-30) mmol/L Anion Gap 13.3 6.4 (5-15) MEQ/L BUN 21 H 16 (9-20) mg/dL Creatinine 1.33 H 1.24 (0.66-1.25) mg/dL Estimated GFR 57.2 62.2 ML/MIN Glucose 129 H 119 H (74-106) mg/dL Lactic Acid (0.4-2.0) Calcium 9.7 8.4 (8.4-10.2) mg/dL Total Bilirubin 1.40 H 0.70 (0.2-1.3) mg/dL AST 16 L 19 (17-59) U/L ALT 17 14 (0-50) U/L Alkaline Phosphatase 89 62 (38-126) U/L Serum Total Protein 8.5 H 6.5 (6.3-8.2) g/dL Albumin 4.7 3.5 (3.5-5.0) g/dL Lipase 39 (23-300) U/L Urine Color (Yellow) Urine Appearance (Clear) Urine pH (4.6-8.0) Ur Specific [place] (1.005-1.030) Urine Protein (Negative) Urine Glucose (UA) (Negative) mg/dL Urine Ketones (Negative) Urine Blood (Negative) Urine Nitrite (Negative) Urine Bilirubin (Negative) Urine Urobilinogen (0.2) mg/dL Ur Leukocyte Esterase (Negative) U Hyaline Cast (Auto) (0-2) /LPF Urine Microscopic RBC (0-5) /HPF Urine Microscopic WBC (0-5) /HPF Ur Epithelial Cells (None Seen) /HPF Urine Bacteria (None Seen) /HPF Urine Culture Reflexed (NO) Radiology Exams: Radiology Procedures Category Date Time Status ABDOMEN AND PELVIS W CONTRAST [CT] Stat Exams 09/22/23 13:36 Completed <GUSTAVO WADE - Last Filed: 09/23/23 13:01> Vital Signs: Vital Signs - 24 hr Temp Pulse Resp BP Pulse Ox 09/23/23 20:00 98.4 F 68 20 125/58 96 09/23/23 16:00 97.5 F 77 17 103/58 97 09/23/23 12:00 97.8 F 74 18 128/58 94 L 09/23/23 08:00 97.8 F 78 18 127/62 95 09/23/23 04:00 98.4 F 80 16 108/63 99 09/23/23 00:00 98.4 F 81 20 121/63 99 09/22/23 23:00 99.1 F 73 16 97/55 97 09/22/23 22:30 99 F 74 16 103/57 97 01/13/24 22:00 83 20 109/56 96 09/22/23 21:45 99.0 F 82 18 110/53 96 09/22/23 21:30 86 18 103/61 94 L 09/22/23 21:15 99.3 F 88 18 117/57 88 L Pain Assessment - Last Documented Pain Intensity 5 Pain Scale Used 0-10 Pain Scale Intake and Output: Intake & Output 09/21/23 09/22/23 09/23/23 09/24/23 11:59 11:59 11:59 11:59 Intake Total 901 522 Output Total 500 Balance 401 522 Weight 78.6 kg Lab Results: Lab Results-Last 24 Hours 09/23/23 09/23/23 Range/Units 05:50 05:50 WBC 10.3 (4.0-10.5) x10^3/uL RBC 4.08 L (4.1-5.6) x10^6/uL Hgb 12.9 (12.5-18.0) g/dL Hct 38.4 L (42-50) % MCV 94.1 (78-100) fL MCH 31.6 (26-32) pg MCHC 33.6 (32-36) g/dL RDW 13.0 (11.5-14.0) % Plt Count 210 (150-450) x10^3/uL MPV 9.3 (7.5-11.0) fL Gran % 65.7 (36.0-66.0) % Immature Gran % (Auto) 0.2 (0.00-0.4) % Nucleat RBC Rel Count 0.0 (0.00-0.1) % Eos # (Auto) 0.44 (0-0.5) x10^3/uL Immature Gran # (Auto) 0.02 (0.00-0.03) x10^3u/L Absolute Lymphs (auto) 1.92 (1.0-4.6) x10^3/uL Absolute Monos (auto) 1.05 (0.0-1.3) x10^3/uL Absolute Nucleated RBC 0.00 (0.00-0.01) x10^3u/L Lymphocytes % 18.6 L (24.0-44.0) % Monocytes % 10.2 (0.0-12.0) % Eosinophils % 4.3 (0.00-5.0) % Basophils % 1.0 (0.0-0.4) % Absolute Granulocytes 6.80 (1.4-6.9) x10^3/uL Basophils # 0.10 (0-0.4) x10^3/uL Sodium 135 L (137-145) mmol/L Potassium 4.1 (3.5-5.1) mmol/L Chloride 105 (98-107) mmol/L Carbon Dioxide 28 (22-30) mmol/L Anion Gap 6.4 (5-15) MEQ/L BUN 16 (9-20) mg/dL Creatinine 1.24 (0.66-1.25) mg/dL Estimated GFR 62.2 ML/MIN Glucose 119 H (74-106) mg/dL Calcium 8.4 (8.4-10.2) mg/dL Total Bilirubin 0.70 (0.2-1.3) mg/dL AST 19 (17-59) U/L ALT 14 (0-50) U/L Alkaline Phosphatase 62 (38-126) U/L Serum Total Protein 6.5 (6.3-8.2) g/dL Albumin 3.5 (3.5-5.0) g/dL Radiology Exams: Radiology Procedures Category Date Time Status ABDOMEN AND PELVIS W CONTRAST [CT] Stat Exams 09/22/23 13:36 Completed KUB Urgent Exams 09/23/23 14:48 Completed <CARROLL VALDEZ - Last Filed: 09/23/23 20:25> Assessment/Plan (1) Acute appendicitis Current Visit: Yes Status: Acute Assessment & Plan: -Surgery consulted, plans for surgical intervention this evening -Zosyn given in ED, surgery to decide if abx to continue -Supportive care with pain control, anti-emetics 09/23: PODS#1 -Pain control/anti-emetics -Most likely will d/c in the morning Code(s): K35.80 - UNSPECIFIED ACUTE APPENDICITIS (2) JORGE (acute kidney injury) Current Visit: Yes Status: Acute Assessment & Plan: -Most likely secondary to hypovolemia -IVF -Monitor renal/lytes daily -Avoid SCAHA/ARBS NSAIDS -Strict I&O -Monitor to fluid overload 09/23: -resolved Code(s): N17.9 - ACUTE KIDNEY FAILURE, UNSPECIFIED (3) Leukocytosis Current Visit: Yes Status: Acute Assessment & Plan: -secondary to acute appendicitis, WBC at 16.3, trend, Zosyn given in ED, see acute appendicitis 09/23: -Resolved Code(s): D72.829 - ELEVATED WHITE BLOOD CELL COUNT, UNSPECIFIED (4) HTN (hypertension) Current Visit: Yes Status: Acute Assessment & Plan: -continue home medications once appropriate Code(s): I10 - ESSENTIAL (PRIMARY) HYPERTENSION (5) HLD (hyperlipidemia) Current Visit: Yes Status: Acute Assessment & Plan: -Continue home meds when appropriate Code(s): K35.80 - UNSPECIFIED ACUTE APPENDICITIS (2) JORGE (acute kidney injury) Current Visit: Yes Status: Acute Code(s): N17.9 - ACUTE KIDNEY FAILURE, UNSPECIFIED (3) Leukocytosis Current Visit: Yes Status: Acute Code(s): D72.829 - ELEVATED WHITE BLOOD CELL COUNT, UNSPECIFIED (4) HTN (hypertension) Current Visit: Yes Status: Acute Code(s): I10 - ESSENTIAL (PRIMARY) HYPERTENSION (5) HLD (hyperlipidemia) Current Visit: Yes Status: Acute Code(s): E78.5 - HYPERLIPIDEMIA, UNSPECIFIED (6) Smoker Current Visit: Yes Status: Acute Code(s): F17.200 - NICOTINE DEPENDENCE, UNSPECIFIED, UNCOMPLICATED <GUSTAVO WADE - Last Filed: 09/23/23 13:01> STACIE Encounter - STACIE Encounter Attestation STACIE Encounter Attestation: "MiahpersonallyseenandexHÉCTOR Wylie andhavediscussed pertinent aspects of their care with Gustavo Basilio agree with the history, physical exam (any modifications based on my personal exam will be noted below), assessment, and plan as outlined in original note. Please see immediately below for my summary of findings and additional assessment and plan along with any meaningful corrections/explanations to the Subjective/Objective portions of the STACIE note will be noted." My portion of the encounter took place via telemedicine. -Acute appendicitis POD 1 today after appendectomy. Still had pain this morning, unable to eat much. Pain control, advance diet as tolerated. Await surgery follow up <CARROLL VALDEZ - Last Filed: 09/23/23 20:25>
--- NOTE | 2023-09-23 16:14 | XRAY ---
CLINICAL HISTORY:abd pain COMPARISON:None. TECHNIQUE:X-ray abdomen showing 1 view: AP view. FINDINGS: Suboptimal study limits the assessment. Nonspecific bowel gas distribution. No evidence of abnormally dilated bowel loops. No evidence of pneumoperitoneum. No abnormal calcification. There is fecal retention in the ascending and transverse colon. Postcholecystectomy metallic surgical clips at the right hypochondria region. IMPRESSION: 1. Fecal retention in the colon. 2. Otherwise, unremarkable abdominal X-ray. Electronically Signed by: Justice Hodgson MD. (09/23/2023 16:11:16 EST)
[2023-09-23] MEDS ORDERED: Docusate Sodium 100 MG PO PRN (16:41)
[2023-09-23] MEDS: Nicoderm CQ 21 MG TOP SCH (18:42)
[2023-09-23] MEDS ORDERED: NORCO 5/325 MG PO PRN (20:48)
[2023-09-23] MEDS: Flonase NASAL NS SCH (21:15)
[2023-09-23] MEDS: D5W/0.45NS W/ 20mEq KCl 1000 ML 1,000 ML IV SCH (21:35)
[2023-09-23] MEDS ORDERED: ZOCOR 20MG PO SCH (22:00)
[2023-09-24 05:11] LABS: Absolute Neutrophil Ct (ANC) 5.53 x10^3/uL (1.4-6.9); BASOPHIL % 1.2 % (0.0-0.4); Basophil (Absolute #) 0.11 x10^3/uL (0-0.4); Eosinophil % 7.2 % (0.00-5.0); Eosinophil (Absolute #) 0.65 x10^3/uL (0-0.5); Hematocrit 37.5 % (42-50); Hemoglobin 12.8 g/dL (12.5-18.0); IMMATURE GRAN # 0.03 x10^3u/L (0.00-0.03); IMMATURE GRAN % 0.3 % (0.00-0.4); Lymphocyte (Absolute #) 1.75 x10^3/uL (1.0-4.6); Lymphocytes % 19.4 % (24.0-44.0); Mean Cell Volume 93.3 fL (78-100); Mean Corpuscular Hemoglobin 31.8 pg (26-32); Mean Corpuscular Hgb Concent. 34.1 g/dL (32-36); Mean Platelet Volume 9.7 fL (7.5-11.0); Monocyte (Absolute #) 0.96 x10^3/uL (0.0-1.3); Monocytes % 10.6 % (0.0-12.0); Neutrophil % 61.3 % (36.0-66.0); Platelet Count 212 x10^3/uL (150-450); Red Blood Count 4.02 x10^6/uL (4.1-5.6); Red Cell Distribution Width 12.8 % (11.5-14.0)
[2023-09-24 05:44] LABS: ALBUMIN 3.5 g/dL (3.5-5.0); ANION GAP 9.3 MEQ/L (5-15); BILIRUBIN,TOTAL 0.6 mg/dL (0.2-1.3); Calcium 8.9 mg/dL (8.4-10.2); Creatinine 1 1.13 mg/dL (0.66-1.25); EST GLOMERULAR FILTRATION RATE 69.5 ML/MIN; Potassium 3.9 mmol/L (3.5-5.1); Total Protein 6.2 g/dL (6.3-8.2)
[2023-09-24] MEDS: Zofran 4 MG/2 ML VIAL IV PRN (06:40)
[2023-09-24 07:31] VITALS: BP 146/69; PULSE 75; RESP 17; TEMP 98.7; O2SAT 94
[2023-09-24] MEDS: CLARITIN 10 MG PO SCH (09:05)
[2023-09-24] MEDS: ECOTRIN 81 MG PO SCH (09:05)
[2023-09-24] MEDS: NORVASC 5 MG PO SCH (09:05)
[2023-09-24] MEDS: ENOXAPARIN SODIUM SQ SCH (09:06)
--- NOTE | 2023-09-24 11:03 | PCM.DS ---
Discharge Summary Date of Admission: 09/22/23 16:54 Date of Discharge: 09/24/2023 Admitting Physician: CARROLL VALDEZ MD Primary Care Provider: SCOTTY MURPHY Allergies Allergies No Known Drug Allergies Allergy (Verified 09/22/23 13:16) Hospital Summary - Hospital Course Hospital Course: is a 73 year old male with a pmhx of HTN, TIA, HLD, and tobacco us. He presented to ED 09/22/23 with complaints of right-sided abdominal pain for the three days. Patient reports that he was in his usual state of health until this past Sunday when he started to experience a cramping/stabbing pain to his RUQ radiating to his umbilicus. Pain initially was intermittent but has increased in intensity and consistency the last two days. He rated his pain 8-9/10 on a numerical pain scale. No aggravating factors or associated symptoms such as nausea, vomiting, or fever. Pain somewhat reduced with pain medications. He does endorse a poor appetite with little food and drink for the past two days and constipation. Denies fever,cough, sob, cp, LEDEZMA, dizziness, N/V/D. In ED upon presentation, patient was hypertensive, afebrile, with spo2 at 95% on RA. CT of the abdomen and pelvis consistent with acute appendicitis, no abscess or perforation noted. Lab findings remarkable for WBC at 16.3, mild hyponatremia at 134, JORGE with BUN 21, creat 1.33, Tbili at 1.40, AST at 16, and total protein at 8.5. Patient given Zosyn, Dilaudid, and 1 liter fluid bolus. General surgery consulted. Lap appy performed with no complications. Pt stayed overnight d/t increased pain. Today since he has been up and walking around pain has improved. He would like to go home. - Vitals & Intake/Output Vital Signs: Vital Signs Temperature 98.7 F 09/24/23 07:30 Pulse Rate 75 09/24/23 07:30 Respiratory Rate 17 09/24/23 07:30 Blood Pressure 146/69 09/24/23 07:30 O2 Sat by Pulse Oximetry 94 L 09/24/23 07:30 Intake & Output: Intake & Output 09/21/23 09/22/23 09/23/23 09/24/23 11:59 11:59 11:59 11:59 Intake Total 901 1122 Output Total 500 Balance 401 1122 Weight 78.6 kg - Lab Result Diagrams: 09/24/23 04:00 09/24/23 04:59 Lab Results-Last 24 Hrs: Lab Results-Last 24 Hours 09/24/23 09/24/23 Range/Units 04:00 04:59 WBC 9.0 (4.0-10.5) x10^3/uL RBC 4.02 L (4.1-5.6) x10^6/uL Hgb 12.8 (12.5-18.0) g/dL Hct 37.5 L (42-50) % MCV 93.3 (78-100) fL MCH 31.8 (26-32) pg MCHC 34.1 (32-36) g/dL RDW 12.8 (11.5-14.0) % Plt Count 212 (150-450) x10^3/uL MPV 9.7 (7.5-11.0) fL Gran % 61.3 (36.0-66.0) % Immature Gran % (Auto) 0.3 (0.00-0.4) % Nucleat RBC Rel Count 0.0 (0.00-0.1) % Eos # (Auto) 0.65 H (0-0.5) x10^3/uL Immature Gran # (Auto) 0.03 (0.00-0.03) x10^3u/L Absolute Lymphs (auto) 1.75 (1.0-4.6) x10^3/uL Absolute Monos (auto) 0.96 (0.0-1.3) x10^3/uL Absolute Nucleated RBC 0.00 (0.00-0.01) x10^3u/L Lymphocytes % 19.4 L (24.0-44.0) % Monocytes % 10.6 (0.0-12.0) % Eosinophils % 7.2 H (0.00-5.0) % Basophils % 1.2 (0.0-0.4) % Absolute Granulocytes 5.53 (1.4-6.9) x10^3/uL Basophils # 0.11 (0-0.4) x10^3/uL Sodium 134 L (137-145) mmol/L Potassium 3.9 (3.5-5.1) mmol/L Chloride 106 (98-107) mmol/L Carbon Dioxide 23 (22-30) mmol/L Anion Gap 9.3 (5-15) MEQ/L BUN 17 (9-20) mg/dL Creatinine 1.13 (0.66-1.25) mg/dL Estimated GFR 69.5 ML/MIN Glucose 112 H (74-106) mg/dL Calcium 8.9 (8.4-10.2) mg/dL Total Bilirubin 0.60 (0.2-1.3) mg/dL AST 17 (17-59) U/L ALT 15 (0-50) U/L Alkaline Phosphatase 69 (38-126) U/L Serum Total Protein 6.2 L (6.3-8.2) g/dL Albumin 3.5 (3.5-5.0) g/dL - Radiology Exams Ordered Rad Exams-Entire Visit: Radiology Procedures Category Date Time Status ABDOMEN AND PELVIS W CONTRAST [CT] Stat Exams 09/22/23 13:36 Completed KUB Urgent Exams 09/23/23 14:48 Completed - Procedures and Test Procedures and Tests throughout Hospitalization: Therapy Orders & Screens 09/22/23 16:57 EKG STAT Comment: med/surg room Diagnosis: Acute appendicitis 09/22/23 18:25 Smoking Cessation Education ONCE Comment: Diagnosis: Acute appendicitis Smoking Status: Current every day smoker How long have you smoked: 30+ years Have you smoked in the past 12 months: Yes Approximately how many cigarettes per day: 20 Do you dip or chew tobacco: No Discharge Exam General Appearance: no apparent distress, alert Neurologic Exam: alert, oriented x 3, cooperative, normal mood/affect, nml cerebellar function, sensation nml, No motor deficits Eye Exam: PERRL, EOMI, eyes nml inspection Ears, Nose, Throat Exam: normal ENT inspection, pharynx normal, moist mucous membranes Neck Exam: normal inspection, non-tender, supple, full range of motion Respiratory Exam: normal breath sounds, lungs clear, No respiratory distress Cardiovascular Exam: regular rate/rhythm, normal heart sounds Gastrointestinal/Abdomen Exam: soft, tenderness (LLQ), No mass Male Genitalia Exam: deferred Rectal Exam: deferred Back Exam: normal inspection, normal range of motion, No CVA tenderness, No vertebral tenderness Extremity Exam: normal inspection, normal range of motion Skin Exam: normal color, warm, dry, other (Covered lap lesions) Wound Assessment: Skin/Wound Assessment Wound/Incision Assessment Start: 09/24/23 08:37 Text: Status: Active Freq: Q6H Protocol: Document 09/24/23 08:00 [facility] (Rec: 09/24/23 08:41 [facility] [id number]) Wound/Incision Assessment Left Anterior Abdomen Wound Assessment Shift Assessment Wound Type Incision Wound Stage Non Pressure Wound Dressing Status Dry & Intact Drainage Amount None Primary Dressing Bandaid Comment 4 incisions steri strips and covered with bandaids, no drainage noted dressing C/D/I Wound Photo Photo Taken No Final Diagnosis/Problem List - Final Discharge Diagnosis/Problem (1) Acute appendicitis Current Visit: Yes Status: Acute Assessment & Plan: - POD #2 - Pain improved Code(s): K35.80 - UNSPECIFIED ACUTE APPENDICITIS (2) JORGE (acute kidney injury) Current Visit: Yes Status: Acute Assessment & Plan: - resolved Code(s): N17.9 - ACUTE KIDNEY FAILURE, UNSPECIFIED (3) HLD (hyperlipidemia) Current Visit: Yes Status: Chronic Assessment & Plan: - continue home meds Code(s): E78.5 - HYPERLIPIDEMIA, UNSPECIFIED (4) HTN (hypertension) Current Visit: Yes Status: Acute Assessment & Plan: - continue home meds - stable Code(s): I10 - ESSENTIAL (PRIMARY) HYPERTENSION (5) Leukocytosis Current Visit: Yes Status: Acute Assessment & Plan: - resolved Code(s): D72.829 - ELEVATED WHITE BLOOD CELL COUNT, UNSPECIFIED (6) Smoker Current Visit: Yes Status: Acute Assessment & Plan: - advised cessation Code(s): F17.200 - NICOTINE DEPENDENCE, UNSPECIFIED, UNCOMPLICATED - Discharge Discharge Date: 09/24/23 Disposition: Home, Self-Care Condition: Stable Prescriptions: Continue Fluticasone Propionate 2 spray INTRANASAL HS Aspirin EC 81 mg [Ecotrin 81 mg] 81 mg PO DAILY Rosuvastatin Calcium 10 mg PO DAILY Loratadine 10 mg [Claritin 10 mg] 10 mg PO DAILY Amlodipine Besylate 5 mg [Norvasc 5 mg] 5 mg PO DAILY Instructions: Appendectomy, Laparoscopic Surgery (DC) Follow up with: SADAF HARRIS MD [ACTIVE STAFF] - 10/04/23 9:10 am (APPOINTMENT IN THE [facility] OFFICE. ) SCOTTY MURPHY NP [Primary Care Provider] - 10/01/23 10:30 am
--- NOTE | 2023-09-24 11:06 | OP ---
SURGERY DATE/TIME: 09/22/20231936 PREOPERATIVE DIAGNOSIS: Appendicitis. POSTOPERATIVE DIAGNOSES: Appendicitis, nonperforated. PROCEDURE: Laparoscopic appendectomy. SURGEON: Juan Manuel Gee M.D. ANESTHESIA: General. ESTIMATED BLOOD LOSS: Minimal. CONDITION: Patient condition stable. COMPLICATIONS: None. SPECIMEN: Appendix. HISTORY: The patient is a 73-year-old male who presents with two day history of abdominal pain migrating to the right lower quadrant. He had slight guarding and rebound on exam. CT scan confirmed acute appendicitis. Discussed with the patient the risk of infection, bleeding, injury to nearby structure, hernia, negative examination and option of nonoperative management and he elected to proceed with surgery. FINDINGS: Acute appendicitis, nonperforated. He also has an obvious left indirect inguinal hernia. No obvious hernia on the right. DESCRIPTION OF PROCEDURE: The patient was brought to the operating room. General anesthesia was induced, routinely positioned, prepped and draped. Time out was performed. He received preoperative antibiotic. The Veress needle inserted in left upper quadrant. Pneumoperitoneum established. The 12 mm Optiview trocar placed in the left lower quadrant. Pneumoperitoneum established. The 5 mm umbilical trocar placed, 5 mm suprapubic trocar placed. The abdomen was surveyed. There is jerry obvious appendicitis without perforation. The mesoappendix is taken with LigaSure. The base of the appendix taken with white load SARAH stapler. The staple line is satisfactory, hemostatic. He does have an obvious left indirect inguinal hernia and no obvious hernia on the right side. The appendix was placed in a bag and removed through the trocar site. The 12 trocar site is closed with 0 Vicryl interrupted suture passer. The suprapubic port is removed under direct visualization. The umbilical trocar used for desufflation and removed. Marcaine had been injected at all the port sites. The skin is closed with 4-0 Vicryl sutures. Steri-Strips and sterile dressings applied. All counts were correct. The patient tolerated the procedure well. He was taken to the recovery room in stable condition.
== END 2023-09-24 11:28 | disposition home or self-care (01) ==
LOC: ED 13:07 → MED SURG 16:54
PROVIDERS: ADMIT Internal Medicine; ATTEND Internal Medicine
DX: K35.80 Unspecified acute appendicitis (principal); N17.9 Acute kidney failure, unspecified; I10 Essential (primary) hypertension; E78.5 Hyperlipidemia, unspecified; F17.200 Nicotine dependence, unspecified, uncomplicated; D72.829 Elevated white blood cell count, unspecified; K59.00 Constipation, unspecified; Z79.899 Other long term (current) drug therapy; Z20.828 Contact with and (suspected) exposure to other viral communicable diseases
CPT/HCPCS: 36000; 36415; 44970; 74018; 74177; 80053; 81001; 83605; 83690; 85025; 93005; 93268; 96374; 96375; 99285; G0378; Q3014; J0330; J0694; J1170; J1650; J2250; J2270; J2371; J2405; J3010; A9270-GY

== ENCOUNTER 2024-06-25 13:56 | Emergency (ER) | payer MEDICARE | END 2024-06-25 15:02 | disposition left against medical advice (07) | LOC: ED 13:56 | DX: Z53.21 Procedure and treatment not carried out due to patient leaving prior to being seen by health care provider (principal) | CPT/HCPCS: 99281 ==